=== PATIENT | male | born 1940 | race Caucasian/White ===

== ENCOUNTER → 2018-05-07 07:33 | Outpatient (CLI) | payer OTHER, SELFPAY ==
[2018-05-07 08:26] LABS: Add Manual Diff / Slide Review NO; Basophils Percent Auto 1.1 % (0-2); Eosinophils Percent Auto 4.7 % (2-4); Hematocrit 39.9 % (41-53); Hemoglobin 13.2 g/dL (13.5-17.5); Lymphocytes Percent Auto 38.3 % (25-40); Mean Corpuscular HGB Conc 33.1 % (30-36); Mean Corpuscular Hemoglobin 30.5 PG (26-34); Mean Corpuscular Volume 92.1 fL (80-100); Monocytes Percent Auto 11.8 % (3-14); Neutrophils Absolute Auto 2100 /uL (3000-5900); Neutrophils Percent Auto 44.1 % (50-75); Platelet Count 174 X10^3/uL (150-400); Red Blood Cell Count 4.34 X10^6/uL (4.5-5.9); Red Cell Distribution Width 14.5 % (11.6-14.8); White Blood Cell Count 4.7 X10^3/uL (4.5-11.0)
[2018-05-07 08:37] LABS: HEMOLYSIS < 15 (0-50)
[2018-05-07 08:46] LABS: Hemoglobin A1C% w Est Avg Glu 9.3 % (4.0-6.0)
[2018-05-07 08:47] LABS: Alanine Aminotransferase 30 IU/L (21-72); Albumin 4.4 g/dL (3.5-5.0); Albumin Globulin Ratio 1.6 (1.0-2.8); Alkaline Phosphatase 52 U/L (38-126); Aspartate Aminotransferase 21 IU/L (17-59); BUN Creatinine Ratio 27.5 (6-22); Bilirubin Total 0.6 mg/dL (0.2-1.3); Bilirubin Unconjugated 0.4 mg/dL (0.0-1.1); Blood Urea Nitrogen 22 mg/dL (9-20); Calcium 9.4 mg/dL (8.4-10.2); Carbon Dioxide 30 mmol/L (22-32); Chloride 100 mmol/L (98-107); Estimated Glomerular Filt Rate > 60.0 mL/min (>60); Globulin 2.8 g/dL (1.7-4.1); Glucose 217 mg/dL (80-110); Potassium 4.8 mmol/L (3.4-5.1); Sodium 140 mmol/L (137-145); Total Protein 7.2 g/dL (6.3-8.2)
[2018-05-07 09:43] LABS: Prostate Specific Antigen 0.851 ng/mL (0.10-4.00)
[2018-05-07 09:46] LABS: Creatinine Urine Random 49.9 mg/dL
[2018-05-07 09:51] LABS: Microalbumin Urine Random 1.9 mg/dL (0-1.6)
[2018-05-07 09:55] LABS: Thyroid Stimulating Hormone 2.44 uIU/mL (0.47-4.68)
== END ==
PROVIDERS: Family Provider Internal Medicine; PCP Internal Medicine; Visit Provider Family Medicine
DX: E11.9 Type 2 diabetes mellitus without complications (principal); Z12.5 Encounter for screening for malignant neoplasm of prostate; M54.5 Low back pain; G89.29 Other chronic pain; B35.1 Tinea unguium; Z01.818 Encounter for other preprocedural examination; E03.9 Hypothyroidism, unspecified
CPT/HCPCS: 36415; 80053; 80076; 82043; 82570; 83036; 84153; 84443; 85025

== ENCOUNTER 2018-05-31 15:15 | Outpatient (RCR) | payer OTHER, SELFPAY ==
--- NOTE | 2018-04-26 15:14 | PT.OIE ---
Current Diagnoses Other chronic pain (04/26/18) Low back pain (04/26/18) Provider Visit Care Team Role Provider Type Jaxson Waters MD Family Provider Physician Primary Care Provider Specialty: Internal Medicine Address: [address] [place] [address], [id number] Email: Penny Lau MD Attending Provider Non-Staff Specialty: Family Practice Address: [address] [place] [address], [id number] Email: Physical Therapy Initial Evaluation PT-OP-A Visit Information Start: 04/28/18 16:22 Freq: Status: Active Protocol: Document 04/26/18 15:14 [facility] (Rec: 04/28/18 16:45 [facility] [email or web address]) Out-Patient Physical Therapy Visit Information Visit Information Visit Type Initial Evaluation Visit Start Time 14:30 Visit Stop Time 15:14 Total Visit Minutes 44 Visit Number 1 Number of DIRECTOR PRIVATE MUSIC THERAPY AGENCY Visits 0 Evaluation Information Evaluation Date 04/26/18 PT-OP-B Current Condition Start: 04/28/18 16:22 Freq: Status: Active Protocol: Document 04/26/18 15:14 [facility] (Rec: 04/28/18 16:45 [facility] [email or web address]) Current Condition History of Current Condition Onset Date 1 month ago Current Complaints low back pain History of Current Condition Pt is a 78 y/o male presenting with a c/o low back pain. He has had chronic back pain on/ off for years, normally is able to get relief from chiropractics. He goes to the gym regularly for cardio and does upper body machines. He is hoping to get some exercises for his low back to assist with helping preventing further back injuries in the future. Pt has a couple of stretches he does and an exercise leaning against the wall that his chiropractor gave him. Pt denies radiculopathy, numbness/ tingling, saddle numbness, or changes in bowel/bladder function. No recent radiographs or imaging. Prior Treatments and Tests chiropractor with some relief but pain always comes back Treatment Goals Patient/Caregiver Goals establish exercises to build strength and prevent re-injury . Prior Functional Status Baseline Function- Recreation/Hobbies going to the gym daily for cardio and UE workouts Current Functional Impairments (Reported) Functional Limitations- Recreation/ not back at the gym yet due to Hobbies pain in low back PT-OP-C Subjective Start: 04/28/18 16:22 Freq: Status: Active Protocol: Document 04/26/18 15:14 [facility] (Rec: 04/28/18 16:45 [facility] [email or web address]) OP-PT Pain Assessment Location Bilateral Lower Back Intensity 3 Scale Used Numeric (1 - 10) PT-OP-F Manual Assessment Start: 04/28/18 16:22 Freq: Status: Active Protocol: Document 04/26/18 15:14 [facility] (Rec: 04/28/18 16:45 [facility] [email or web address]) Manual Assessments Soft Tissue Assessment Soft Tissue Mobility Assessment TTP: B mutlifidi L3-5, L piriformis. PT-OP-G Mobility & Gait Start: 04/28/18 16:22 Freq: Status: Active Protocol: Document 04/26/18 15:14 [facility] (Rec: 04/28/18 16:45 [facility] [email or web address]) OP Mobility Evaluation Bed Mobility Rolling indep. Supine to and from Sit indep. OP Gait Assessment Comments Gait Comments mildly antalgic, slight decrease R step length due to increased knee flexion in stance PT-OP-H Neuro Start: 04/28/18 16:22 Freq: Status: Active Protocol: Document 04/26/18 15:14 [facility] (Rec: 04/28/18 16:45 [facility] [email or web address]) Deep Tendon Reflex & Clonus Assessment Deep Tendon Reflex Bilateral Achilles Deep Tendon Reflex 2+ Normal Bilateral Patellar Deep Tendon Reflex 2+ Normal Ankle Clonus Bilateral Clonus Assessment Absent PT-OP-K Range of Motion Start: 04/28/18 16:22 Freq: Status: Active Protocol: Document 04/26/18 15:14 [facility] (Rec: 04/28/18 16:45 [facility] [email or web address]) Lumbar Spine Range of Motion Lumbar Spine Active Degrees Testing Position Standing Flexion 75 Extension 20 PT-OP-L Special Tests Start: 04/28/18 16:22 Freq: Status: Active Protocol: Document 04/26/18 15:14 [facility] (Rec: 04/28/18 16:45 [facility] [email or web address]) Special Tests Lumbar Spine Special Tests Vertical Spine Loading Test Results negative Slump Test Results negative Straight Leg Raise Test Results negative Prone Instability Test Test Results negative PT-OP-M Strength Start: 04/28/18 16:22 Freq: Status: Active Protocol: Document 04/26/18 15:14 [facility] (Rec: 04/28/18 16:45 [facility] [email or web address]) Hip Strength Hip Manual Muscle Testing Right Flexion (L2) 5 Normal External Rotation 5 Normal Internal Rotation 5 Normal Left Flexion (L2) 5 Normal External Rotation 5 Normal Internal Rotation 5 Normal Knee Strength Knee Manual Muscle Testing Right Flexion (S2) 5 Normal Extension (L3) 5 Normal Left Flexion (S2) 5 Normal Extension (L3) 4 Good Ankle/Foot Strength Ankle and Foot Manual Muscle Testing Right Dorsiflexion (L4) 5 Normal Left Dorsiflexion (L4) 5 Normal Toe Strength Toe Manual Muscle Testing Right Great Toe Extension 5 Normal Left Great Toe Extension 5 Normal PT-OP-Q Treatments Start: 04/28/18 16:22 Freq: Status: Active Protocol: Document 04/26/18 15:14 [facility] (Rec: 04/28/18 16:45 [facility] [email or web address]) Therapeutic Activity Therapeutic Activity HEP Name established, reviewed, handout provided for HEP PT-OP-T Assessment and Plan Start: 04/28/18 16:22 Freq: Status: Active Protocol: Document 04/26/18 15:14 [facility] (Rec: 04/28/18 16:45 [facility] [email or web address]) Physical Therapy Assessment Rehab Potential Rehabilitation Potential Excellent Evaluation Complexity Number of Personal Factors/Comorbidities 1-2 Number of Body Systems Impaired 1-2 Clinical Presentation at Evaluation Stable Impairments Impairments Activity Tolerance Gait Pain Strength Goals home exercise program Impairment no home program for core and low back stability Skilled Nursing Goal (LTG) pt will be indep. in a home exercise program to progress his low back and core stability to prevent re-injury prior to d/c. LTG Duration 4 weeks recreational activities Paintings Conservator Goal (LTG) pt will return to the gym for exercise without restriction prior to d/c. LTG Duration 4 weeks pain Impairment pain rated in low back 3/10 Short Term Goal (STG) 1/10 or less in low back pain. STG Duration 2 weeks Skilled Nursing Goal (LTG) 0/10 pain in low back prior to d/c. LTG Duration 4 weeks L quadriceps weakness Paintings Conservator Goal (LTG) 5/5 L quadriceps strength to improve gait and step length on the RLE. LTG Duration 4 weeks Assessment Summary Assessment Pt presents with mechanical low back pain, likely due to impaired core and low back stability, as well as improper technique with some exercises he performs at the gym on his own. Pt would greatly benefit from progression of a home program for his core and low back, as well as skilled progression of his workout routine he will perform at the gym to assist with further advancement of his injury of his low back. At this time, pt was given exercise to perform at home, and if no increase in pain then plan to progress over the next 4 weeks with his program, as well as stretching and manual therapy to decrease pain to return to prior level of function. Physical Therapy Plan Frequency and Duration Frequency of Treatment 1x/Week Duration of Treatment 4 weeks Plan of Care Start Date 04/26/18 Plan of Care End Date 05/24/18 Therapeutic Interventions Therapeutic Interventions Aquatic Therapy Gait Training Home Exercise Program Joint Mobilizations Manual Therapy Neuromuscular Re-education Patient/Caregiver Education Self-Care/Home Management Soft Tissue Mobilization Taping Therapeutic Activities Therapeutic Exercises Modalities Cold Pack/Ice Massage Electric Stimulation Hot Packs Ultrasound Next Visit Focus/Plan Next Note Type Treatment Note Next Visit Plan advance core stability (prone activities), review proper body mechanics with lifting and squats, review gym equipment and perform with proper technique; manual therapy for pain; piriformis stretching.
--- NOTE | 2018-05-31 15:53 | PT.OTN ---
Current Diagnoses Other chronic pain (05/31/18) Low back pain (05/31/18) Physical Therapy Treatment Note PT-OP-A Visit Information Start: 04/28/18 16:22 Freq: Status: Active Protocol: Document 05/31/18 15:53 [facility] (Rec: 05/31/18 18:10 [facility] [email or web address]) Out-Patient Physical Therapy Visit Information Visit Information Visit Type Treatment Note Visit Start Time 15:15 Visit Stop Time 15:52 Total Visit Minutes 38 Visit Number 2 Number of FLIGHT ATTENDANT Visits 0 Evaluation Information Evaluation Date 04/26/18 PT-OP-B Current Condition Start: 04/28/18 16:22 Freq: Status: Active Protocol: Document 04/26/18 15:14 [facility] (Rec: 04/28/18 16:45 [facility] [email or web address]) Current Condition History of Current Condition Onset Date 1 month ago Current Complaints low back pain History of Current Condition Pt is a 78 y/o male presenting with a c/o low back pain. He has had chronic back pain on/ off for years, normally is able to get relief from chiropractics. He goes to the gym regularly for cardio and does upper body machines. He is hoping to get some exercises for his low back to assist with helping preventing further back injuries in the future. Pt has a couple of stretches he does and an exercise leaning against the wall that his chiropractor gave him. Pt denies radiculopathy, numbness/ tingling, saddle numbness, or changes in bowel/bladder function. No recent radiographs or imaging. Prior Treatments and Tests chiropractor with some relief but pain always comes back Treatment Goals Patient/Caregiver Goals establish exercises to build strength and prevent re-injury . Prior Functional Status Baseline Function- Recreation/Hobbies going to the gym daily for cardio and UE workouts Current Functional Impairments (Reported) Functional Limitations- Recreation/ not back at the gym yet due to Hobbies pain in low back PT-OP-C Subjective Start: 04/28/18 16:22 Freq: Status: Active Protocol: Document 05/31/18 15:53 [facility] (Rec: 05/31/18 18:10 [facility] [email or web address]) OP-PT Subjective Patient Comments Patient Comments Pt reports that he thinks his back pain was worse after doing the seated abdominal crunch. He is improving, but still with some days of soreness in the back. OP-PT Pain Assessment Location Bilateral Lower Back Intensity 0 Scale Used Numeric (1 - 10) PT-OP-F Manual Assessment Start: 04/28/18 16:22 Freq: Status: Active Protocol: Document 04/26/18 15:14 [facility] (Rec: 04/28/18 16:45 [facility] [email or web address]) Manual Assessments Soft Tissue Assessment Soft Tissue Mobility Assessment TTP: B mutlifidi L3-5, L piriformis. PT-OP-G Mobility & Gait Start: 04/28/18 16:22 Freq: Status: Active Protocol: Document 04/26/18 15:14 [facility] (Rec: 04/28/18 16:45 [facility] [email or web address]) OP Mobility Evaluation Bed Mobility Rolling indep. Supine to and from Sit indep. OP Gait Assessment Comments Gait Comments mildly antalgic, slight decrease R step length due to increased knee flexion in stance PT-OP-H Neuro Start: 04/28/18 16:22 Freq: Status: Active Protocol: Document 04/26/18 15:14 [facility] (Rec: 04/28/18 16:45 [facility] [email or web address]) Deep Tendon Reflex & Clonus Assessment Deep Tendon Reflex Bilateral Achilles Deep Tendon Reflex 2+ Normal Bilateral Patellar Deep Tendon Reflex 2+ Normal Ankle Clonus Bilateral Clonus Assessment Absent PT-OP-K Range of Motion Start: 04/28/18 16:22 Freq: Status: Active Protocol: Document 04/26/18 15:14 [facility] (Rec: 04/28/18 16:45 [facility] [email or web address]) Lumbar Spine Range of Motion Lumbar Spine Active Degrees Testing Position Standing Flexion 75 Extension 20 PT-OP-L Special Tests Start: 04/28/18 16:22 Freq: Status: Active Protocol: Document 04/26/18 15:14 [facility] (Rec: 04/28/18 16:45 [facility] [email or web address]) Special Tests Lumbar Spine Special Tests Vertical Spine Loading Test Results negative Slump Test Results negative Straight Leg Raise Test Results negative Prone Instability Test Test Results negative PT-OP-M Strength Start: 04/28/18 16:22 Freq: Status: Active Protocol: Document 04/26/18 15:14 [facility] (Rec: 04/28/18 16:45 [facility] [email or web address]) Hip Strength Hip Manual Muscle Testing Right Flexion (L2) 5 Normal External Rotation 5 Normal Internal Rotation 5 Normal Left Flexion (L2) 5 Normal External Rotation 5 Normal Internal Rotation 5 Normal Knee Strength Knee Manual Muscle Testing Right Flexion (S2) 5 Normal Extension (L3) 5 Normal Left Flexion (S2) 5 Normal Extension (L3) 4 Good Ankle/Foot Strength Ankle and Foot Manual Muscle Testing Right Dorsiflexion (L4) 5 Normal Left Dorsiflexion (L4) 5 Normal Toe Strength Toe Manual Muscle Testing Right Great Toe Extension 5 Normal Left Great Toe Extension 5 Normal PT-OP-Q Treatments Start: 04/28/18 16:22 Freq: Status: Active Protocol: Document 05/31/18 15:53 [facility] (Rec: 05/31/18 18:10 [facility] [email or web address]) Gym Equipment Cable Column (Body Solid) Leg Extension Resistance 20 lbs B, 10 lbs U Reps/Time x15 each Leg Curl Resistance 20 lbs Reps/Time x15 Therapeutic Ball PPT Exercise Details posterior pelvic tilt Ball Size/Color 65 cm ball Body Position seated Reps/Duration x10 Therapeutic Exercises Supine Exercises transverse abdominal activation Side bilateral Reps/Minutes 10 x 5 sec hold PPT Supine Exercise Name posterior pelvic tilt Side bilateral Reps/Minutes x10 SLR- flexion Supine Exercise Name SLR flexion with ER Side left Reps/Minutes x10 Standing Exercises step downs with core activation Standing Exercise Name step downs on 6 stairs with core activation Side bilateral Comments UE assistance Other Exercises alternating LE lift (quadruped) Side bilateral Reps/Minutes 10 PT-OP-T Assessment and Plan Start: 04/28/18 16:22 Freq: Status: Active Protocol: Document 05/31/18 15:53 [facility] (Rec: 05/31/18 18:10 [facility] [email or web address]) Physical Therapy Assessment Goals home exercise program Impairment no home program for core and low back stability Skilled Nursing Goal (LTG) pt will be indep. in a home exercise program to progress his low back and core stability to prevent re-injury prior to d/c. LTG Duration 4 weeks- good progress, requires further progression 05/31/18 recreational activities Skilled Nursing Goal (LTG) pt will return to the gym for exercise without restriction prior to d/c. LTG Duration 4 weeks- good progress pain Impairment pain rated in low back 3/10 Short Term Goal (STG) 1/10 or less in low back pain. STG Duration 2 weeks- achieved 05/31/18 Skilled Nursing Goal (LTG) 0/10 pain in low back prior to d/c. LTG Duration 4 weeks- achieved 05/31/18 L quadriceps weakness Skilled Nursing Goal (LTG) 5/5 L quadriceps strength to improve gait and step length on the RLE. LTG Duration 4 weeks Progress Towards Goals Progress Comments pt with 0/10 reported pain in the low back. He requires reminders and cuing for safe HEP progression, and still limited with gym activities. Assessment Summary Assessment Pt with no pain reported today in the low back. 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 Pt will require further skilled physical therapy to progress his HEP and continue to advance his safety with activities including proper body mechanics and posture. Physical Therapy Plan Frequency and Duration Frequency of Treatment 1x/Week Duration of Treatment 4 weeks Plan of Care Start Date 05/31/18 Plan of Care End Date 06/28/18 Therapeutic Interventions Therapeutic Interventions Aquatic Therapy Gait Training Home Exercise Program Joint Mobilizations Manual Therapy Neuromuscular Re-education Patient/Caregiver Education Self-Care/Home Management Soft Tissue Mobilization Taping Therapeutic Activities Therapeutic Exercises Modalities Cold Pack/Ice Massage Electric Stimulation Hot Packs Ultrasound Next Visit Focus/Plan Next Note Type Treatment Note Next Visit Plan progress core stability for HEP, L quadriceps MMT and strengthening.
--- NOTE | 2018-05-31 15:53 | PT.OPPOC ---
Current Diagnoses Other chronic pain (05/31/18) Low back pain (05/31/18) Provider Visit Care Team Role Provider Type Jaxson Waters MD Family Provider Physician Primary Care Provider Specialty: Internal Medicine Address: [address] [place] [address], [phone] Email: Penny Lau MD Attending Provider Non-Staff Specialty: Family Practice Address: [address] [place] [address], [phone] Email: Plan Of Care PT-OP-T Assessment and Plan Start: 04/28/18 16:22 Freq: Status: Active Protocol: Document 05/31/18 15:53 [facility] (Rec: 05/31/18 18:10 [facility] [email or web address]) Physical Therapy Assessment Goals home exercise program Impairment no home program for core and low back stability Skilled Nursing Goal (LTG) pt will be indep. in a home exercise program to progress his low back and core stability to prevent re-injury prior to d/c. LTG Duration 4 weeks- good progress, requires further progression 05/31/18 recreational activities Key Bed Installer Goal (LTG) pt will return to the gym for exercise without restriction prior to d/c. LTG Duration 4 weeks- good progress pain Impairment pain rated in low back 3/10 Short Term Goal (STG) 1/10 or less in low back pain. STG Duration 2 weeks- achieved 05/31/18 Key Bed Installer Goal (LTG) 0/10 pain in low back prior to d/c. LTG Duration 4 weeks- achieved 05/31/18 L quadriceps weakness Skilled Nursing Goal (LTG) 5/5 L quadriceps strength to improve gait and step length on the RLE. LTG Duration 4 weeks Progress Towards Goals Progress Comments pt with 0/10 reported pain in the low back. He requires reminders and cuing for safe HEP progression, and still limited with gym activities. Assessment Summary Assessment Pt with no pain reported today in the low back. 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 Pt will require further skilled physical therapy to progress his HEP and continue to advance his safety with activities including proper body mechanics and posture. Physical Therapy Plan Frequency and Duration Frequency of Treatment 1x/Week Duration of Treatment 4 weeks Plan of Care Start Date 05/31/18 Plan of Care End Date 06/28/18 Therapeutic Interventions Therapeutic Interventions Aquatic Therapy Gait Training Home Exercise Program Joint Mobilizations Manual Therapy Neuromuscular Re-education Patient/Caregiver Education Self-Care/Home Management Soft Tissue Mobilization Taping Therapeutic Activities Therapeutic Exercises Modalities Cold Pack/Ice Massage Electric Stimulation Hot Packs Ultrasound Next Visit Focus/Plan Next Note Type Treatment Note Next Visit Plan progress core stability for HEP, L quadriceps MMT and strengthening. Plan of Care Dates Plan of Care Start Date 05/31/18 Plan of Care End Date 06/28/18 Please Sign and Return: I have reviewed this Plan of Care and certify that the skilled therapy services above are required to meet the patient?s needs. Physician Signature Date Printed Name and Credentials Clinical Instructor Signature Printed Name and Credentials
--- NOTE | 2018-07-20 12:28 | PT.OTN ---
Current Diagnoses Other chronic pain (05/31/18) Low back pain (05/31/18) Physical Therapy Treatment Note PT-OP-A Visit Information Start: 04/28/18 16:22 Freq: Status: Active Protocol: Document 07/20/18 11:15 DCW (Rec: 07/20/18 12:27 DC [id number]) Out-Patient Physical Therapy Visit Information Visit Information Visit Type Treatment Note Visit Start Time 11:15 Visit Stop Time 11:55 Total Visit Minutes 40 Visit Number 3 Number of AMALGAMATOR Visits 0 Evaluation Information Evaluation Date 04/26/18 PT-OP-B Current Condition Start: 04/28/18 16:22 Freq: Status: Active Protocol: Document 04/26/18 15:14 RCC (Rec: 04/28/18 16:45 RCC [email or web address]) Current Condition History of Current Condition Onset Date 1 month ago Current Complaints low back pain History of Current Condition Pt is a 78 y/o male presenting with a c/o low back pain. He has had chronic back pain on/ off for years, normally is able to get relief from chiropractics. He goes to the gym regularly for cardio and does upper body machines. He is hoping to get some exercises for his low back to assist with helping preventing further back injuries in the future. Pt has a couple of stretches he does and an exercise leaning against the wall that his chiropractor gave him. Pt denies radiculopathy, numbness/ tingling, saddle numbness, or changes in bowel/bladder function. No recent radiographs or imaging. Prior Treatments and Tests chiropractor with some relief but pain always comes back Treatment Goals Patient/Caregiver Goals establish exercises to build strength and prevent re-injury . Prior Functional Status Baseline Function- Recreation/Hobbies going to the gym daily for cardio and UE workouts Current Functional Impairments (Reported) Functional Limitations- Recreation/ not back at the gym yet due to Hobbies pain in low back PT-OP-C Subjective Start: 04/28/18 16:22 Freq: Status: Active Protocol: Document 07/20/18 11:15 DCW (Rec: 07/20/18 12:27 DCW [id number]) OP-PT Subjective Patient Comments Patient Comments Pt reports his back has been much worse following a workout at the gym last week. Pt's pain is centralized along the top of his right posterior hip , and he has been having difficulty getting into and out of his car. PT-OP-F Manual Assessment Start: 04/28/18 16:22 Freq: Status: Active Protocol: Document 07/20/18 11:15 DCW (Rec: 07/20/18 11:55 DCW [id number]) Manual Assessments Soft Tissue Assessment Soft Tissue Mobility Assessment Tenderness to palpation 2/4: Pain with wincing - Right QL, Moderate tone along R QL PT-OP-G Mobility & Gait Start: 04/28/18 16:22 Freq: Status: Active Protocol: Document 04/26/18 15:14 RCC (Rec: 04/28/18 16:45 RCC [email or web address]) OP Mobility Evaluation Bed Mobility Rolling indep. Supine to and from Sit indep. OP Gait Assessment Comments Gait Comments mildly antalgic, slight decrease R step length due to increased knee flexion in stance PT-OP-H Neuro Start: 04/28/18 16:22 Freq: Status: Active Protocol: Document 04/26/18 15:14 RCC (Rec: 04/28/18 16:45 RCC [email or web address]) Deep Tendon Reflex & Clonus Assessment Deep Tendon Reflex Bilateral Achilles Deep Tendon Reflex 2+ Normal Bilateral Patellar Deep Tendon Reflex 2+ Normal Ankle Clonus Bilateral Clonus Assessment Absent PT-OP-K Range of Motion Start: 04/28/18 16:22 Freq: Status: Active Protocol: Document 07/20/18 11:15 DCW (Rec: 07/20/18 11:55 DCW [id number]) Lumbar Spine Range of Motion Lumbar Spine Active Degrees Flexion 5 Extension 15 PT-OP-L Special Tests Start: 04/28/18 16:22 Freq: Status: Active Protocol: Document 07/20/18 11:15 DCW (Rec: 07/20/18 11:55 DCW [id number]) Special Tests Lumbar Spine Special Tests Vertical Spine Loading Test Results negative Straight Leg Raise Test Results negative Prone Instability Test Test Results negative PT-OP-M Strength Start: 04/28/18 16:22 Freq: Status: Active Protocol: Document 07/20/18 11:15 DCW (Rec: 07/20/18 11:55 DCW [id number]) Hip Strength Hip Manual Muscle Testing Right Flexion (L2) 5 Normal External Rotation 5 Normal Internal Rotation 5 Normal Left Flexion (L2) 5 Normal External Rotation 5 Normal Internal Rotation 5 Normal Knee Strength Knee Manual Muscle Testing Right Flexion (S2) 5 Normal Extension (L3) 5 Normal Left Flexion (S2) 5 Normal Extension (L3) 4 Good Ankle/Foot Strength Ankle and Foot Manual Muscle Testing Right Dorsiflexion (L4) 5 Normal Left Dorsiflexion (L4) 5 Normal PT-OP-Q Treatments Start: 04/28/18 16:22 Freq: Status: Active Protocol: Document 07/20/18 11:15 DCW (Rec: 07/20/18 12:27 [facility] [id number]) Therapeutic Exercises Supine Exercises QL stretch Supine Exercise Name Supine Lumbar rotation Sidelying Exercises QL Stretch Sidelying Exercise Name Double lower leg drop off plinth Sitting Exercises Low back Stretch Sitting Exercise Name Seated lumbar flexion QL Stretch Sitting Exercise Name Lateral lumbar trunk flexion Manual Therapy Treatment Soft Tissue Mobilization Right QL Body Location Right QL Mobilization Type Strumming Sustained Pressure Intensity/Depth Moderate Body Position Prone PT-OP-T Assessment and Plan Start: 04/28/18 16:22 Freq: Status: Active Protocol: Document 07/20/18 11:15 DCW (Rec: 07/20/18 12:27 [facility] [id number]) Physical Therapy Assessment Goals home exercise program Impairment no home program for core and low back stability Hand Blocker Goal (LTG) pt will be indep. in a home exercise program to progress his low back and core stability to prevent re-injury prior to d/c. LTG Duration 4 weeks- good progress, requires further progression 05/31/18 recreational activities Mcc Goal (LTG) pt will return to the gym for exercise without restriction prior to d/c. LTG Duration 4 weeks- good progress pain Impairment pain rated in low back 3/10 Short Term Goal (STG) 1/10 or less in low back pain. STG Duration 2 weeks- achieved 05/31/18 Hand Blocker Goal (LTG) 0/10 pain in low back prior to d/c. LTG Duration 4 weeks- achieved 05/31/18 L quadriceps weakness Hand Blocker Goal (LTG) 5/5 L quadriceps strength to improve gait and step length on the RLE. LTG Duration 4 weeks Assessment Summary Assessment Pt arrived in the clinic today requesting an appointment due to worsening back pain. He was last seen 05/31/18, and at that time was not having any symptoms, and instructed to return for a follow-up if his low back pain returned. Pt appears to have aggravated his right quadratus lumborum on gym equipment, and is suffering from a spasm throughout the muscle, resulting in pain and restricted ROM. Pt tolerated STM and stretching exercises well, and agreed to supplement his ongoing HEP with new stretching exercises. Pt will return to skilled PT as needed . Physical Therapy Plan Frequency and Duration Frequency of Treatment 1x/Week Duration of Treatment 2 months Plan of Care Start Date 07/20/18 Plan of Care End Date 09/17/18 Therapeutic Interventions Therapeutic Interventions Aquatic Therapy Gait Training Home Exercise Program Joint Mobilizations Manual Therapy Neuromuscular Re-education Patient/Caregiver Education Self-Care/Home Management Soft Tissue Mobilization Taping Therapeutic Activities Therapeutic Exercises Modalities Cold Pack/Ice Massage Electric Stimulation Hot Packs Ultrasound Next Visit Focus/Plan Next Note Type Treatment Note Next Visit Plan progress core stability for HEP, L quadriceps MMT and strengthening.
--- NOTE | 2018-07-20 12:29 | PT.OPPOC ---
Current Diagnoses Other chronic pain (05/31/18) Low back pain (05/31/18) Provider Visit Care Team Role Provider Type Jaxson Waters MD Family Provider Physician Primary Care Provider Specialty: Internal Medicine Address: [address] [place] [address], [id number] Email: Penny Lau MD Attending Provider Non-Staff Specialty: Family Practice Address: [address] [place] [address], [id number] Email: Plan Of Care PT-OP-T Assessment and Plan Start: 04/28/18 16:22 Freq: Status: Active Protocol: Document 07/20/18 11:15 DCW (Rec: 07/20/18 12:27 DCW [id number]) Physical Therapy Assessment Goals home exercise program Impairment no home program for core and low back stability Intermediate Goal (LTG) pt will be indep. in a home exercise program to progress his low back and core stability to prevent re-injury prior to d/c. LTG Duration 4 weeks- good progress, requires further progression 05/31/18 recreational activities Tent Worker Goal (LTG) pt will return to the gym for exercise without restriction prior to d/c. LTG Duration 4 weeks- good progress pain Impairment pain rated in low back 3/10 Short Term Goal (STG) 1/10 or less in low back pain. STG Duration 2 weeks- achieved 05/31/18 Intermediate Goal (LTG) 0/10 pain in low back prior to d/c. LTG Duration 4 weeks- achieved 05/31/18 L quadriceps weakness Tent Worker Goal (LTG) 5/5 L quadriceps strength to improve gait and step length on the RLE. LTG Duration 4 weeks Assessment Summary Assessment Pt arrived in the clinic today requesting an appointment due to worsening back pain. He was last seen 05/31/18, and at that time was not having any symptoms, and instructed to return for a follow-up if his low back pain returned. Pt appears to have aggravated his right quadratus lumborum on gym equipment, and is suffering from a spasm throughout the muscle, resulting in pain and restricted ROM. Pt tolerated STM and stretching exercises well, and agreed to supplement his ongoing HEP with new stretching exercises. Pt will return to skilled PT as needed . Physical Therapy Plan Frequency and Duration Frequency of Treatment 1x/Week Duration of Treatment 2 months Plan of Care Start Date 07/20/18 Plan of Care End Date 09/17/18 Therapeutic Interventions Therapeutic Interventions Aquatic Therapy Gait Training Home Exercise Program Joint Mobilizations Manual Therapy Neuromuscular Re-education Patient/Caregiver Education Self-Care/Home Management Soft Tissue Mobilization Taping Therapeutic Activities Therapeutic Exercises Modalities Cold Pack/Ice Massage Electric Stimulation Hot Packs Ultrasound Next Visit Focus/Plan Next Note Type Treatment Note Next Visit Plan progress core stability for HEP, L quadriceps MMT and strengthening. Plan of Care Dates Plan of Care Start Date 07/20/18 Plan of Care End Date 09/17/18 Please Sign and Return: I have reviewed this Plan of Care and certify that the skilled therapy services above are required to meet the patient?s needs. Physician Signature Date Printed Name and Credentials Clinical Instructor Signature Printed Name and Credentials
--- NOTE | 2018-09-19 14:42 | PT.OPDS ---
Current Diagnoses Other chronic pain (05/31/18) Low back pain (05/31/18) Provider Visit Care Team Role Provider Type Jaxson Waters MD Family Provider Physician Primary Care Provider Specialty: Internal Medicine Address: [address] [place] [address], [phone] Email: Penny Lau MD Attending Provider Non-Staff Specialty: Family Practice Address: [address] [place] [address], [phone] Email: Visit Number Visit Number 3 Discharge Summary PT-OP-B Current Condition Start: 04/28/18 16:22 Freq: Status: Active Protocol: Document 04/26/18 15:14 RCC (Rec: 04/28/18 16:45 RCC [email or web address]) Current Condition History of Current Condition Onset Date 1 month ago Current Complaints low back pain History of Current Condition Pt is a 78 y/o male presenting with a c/o low back pain. He has had chronic back pain on/ off for years, normally is able to get relief from chiropractics. He goes to the gym regularly for cardio and does upper body machines. He is hoping to get some exercises for his low back to assist with helping preventing further back injuries in the future. Pt has a couple of stretches he does and an exercise leaning against the wall that his chiropractor gave him. Pt denies radiculopathy, numbness/ tingling, saddle numbness, or changes in bowel/bladder function. No recent radiographs or imaging. Prior Treatments and Tests chiropractor with some relief but pain always comes back Treatment Goals Patient/Caregiver Goals establish exercises to build strength and prevent re-injury . Prior Functional Status Baseline Function- Recreation/Hobbies going to the gym daily for cardio and UE workouts Current Functional Impairments (Reported) Functional Limitations- Recreation/ not back at the gym yet due to Hobbies pain in low back PT-OP-C Subjective Start: 04/28/18 16:22 Freq: Status: Active Protocol: Document 09/19/18 14:34 RCC (Rec: 09/19/18 14:41 RCC [email or web address]) OP-PT Subjective Patient Comments Patient Comments Called initially and left message for pt about calling back with an update on his progress. Pt called back later this date, and states that he has been doing well without any major issues with his low back. Pt is back to the gym without issues, and not performing any exercises that aggravate his pain or symptoms . Pt is going on a boating trip for 2 months soon, will not be able to attend physical therapy. PT-OP-F Manual Assessment Start: 04/28/18 16:22 Freq: Status: Active Protocol: Document 07/20/18 11:15 DCW (Rec: 07/20/18 11:55 DCW [id number]) Manual Assessments Soft Tissue Assessment Soft Tissue Mobility Assessment Tenderness to palpation 2/4: Pain with wincing - Right QL, Moderate tone along R QL PT-OP-G Mobility & Gait Start: 04/28/18 16:22 Freq: Status: Active Protocol: Document 04/26/18 15:14 RCC (Rec: 04/28/18 16:45 RCC [email or web address]) OP Mobility Evaluation Bed Mobility Rolling indep. Supine to and from Sit indep. OP Gait Assessment Comments Gait Comments mildly antalgic, slight decrease R step length due to increased knee flexion in stance PT-OP-H Neuro Start: 04/28/18 16:22 Freq: Status: Active Protocol: Document 04/26/18 15:14 RCC (Rec: 04/28/18 16:45 RCC [id number]) Deep Tendon Reflex & Clonus Assessment Deep Tendon Reflex Bilateral Achilles Deep Tendon Reflex 2+ Normal Bilateral Patellar Deep Tendon Reflex 2+ Normal Ankle Clonus Bilateral Clonus Assessment Absent PT-OP-K Range of Motion Start: 04/28/18 16:22 Freq: Status: Active Protocol: Document 07/20/18 11:15 DCW (Rec: 07/20/18 11:55 DCW [id number]) Lumbar Spine Range of Motion Lumbar Spine Active Degrees Flexion 5 Extension 15 PT-OP-L Special Tests Start: 04/28/18 16:22 Freq: Status: Active Protocol: Document 07/20/18 11:15 DCW (Rec: 07/20/18 11:55 DCW [id number]) Special Tests Lumbar Spine Special Tests Vertical Spine Loading Test Results negative Straight Leg Raise Test Results negative Prone Instability Test Test Results negative PT-OP-M Strength Start: 11/10/18 16:22 Freq: Status: Active Protocol: Document 07/20/18 11:15 DCW (Rec: 07/20/18 11:55 DCW [id number]) Hip Strength Hip Manual Muscle Testing Right Flexion (L2) 5 Normal External Rotation 5 Normal Internal Rotation 5 Normal Left Flexion (L2) 5 Normal External Rotation 5 Normal Internal Rotation 5 Normal Knee Strength Knee Manual Muscle Testing Right Flexion (S2) 5 Normal Extension (L3) 5 Normal Left Flexion (S2) 5 Normal Extension (L3) 4 Good Ankle/Foot Strength Ankle and Foot Manual Muscle Testing Right Dorsiflexion (L4) 5 Normal Left Dorsiflexion (L4) 5 Normal PT-OP-T Assessment and Plan Start: 04/28/18 16:22 Freq: Status: Active Protocol: Document 09/19/18 14:34 RCC (Rec: 09/19/18 14:41 RCC [email or web address]) Physical Therapy Assessment Assessment Summary Assessment Pt overall attended 3 physical therapy sessions, including the initial evaluation. Pt reports to be back to baseline with his activity level, without c/o low back pain. Pt had a flare up of pain in July but was seen and treated at this clinic and recommended to avoid a particular core machine he was using. No issues reported since then. At this time, pt will be d/c from physical therapy, as the most recent plan of care has now and reported no issues at this time. Physical Therapy Plan Discharge Physical Therapy Discharge Reasons No Longer Attending PT
== END 2018-10-29 17:11 ==
LOC: PHYS 15:15
PROVIDERS: Family Provider Internal Medicine; PCP Internal Medicine; Visit Provider Family Medicine
DX: M54.5 Low back pain (principal); G89.29 Other chronic pain
CPT/HCPCS: 97110; 97140; 97161

== ENCOUNTER → 2019-05-14 07:04 | Outpatient (CLI) | payer OTHER, SELFPAY ==
[2019-05-14 07:47] LABS: Add Manual Diff / Slide Review NO; Basophils Absolute Auto 100 /uL (0-100); Basophils Percent Auto 1.4 % (0-2); Eosinophils Absolute Auto 200 /uL (0-450); Eosinophils Percent Auto 3.5 % (2-4); Hematocrit 39.7 % (41-53); Hemoglobin 13.3 g/dL (13.5-17.5); Lymphocytes Absolute Auto 1700 /uL (1100-4500); Lymphocytes Percent Auto 36.4 % (25-40); Mean Corpuscular HGB Conc 33.5 % (30-36); Mean Corpuscular Hemoglobin 30.6 PG (26-34); Mean Corpuscular Volume 91.2 fL (80-100); Monocytes Absolute Auto 500 /uL (0-900); Monocytes Percent Auto 10.6 % (3-14); Neutrophils Absolute Auto 2300 /uL (1500-7000); Neutrophils Percent Auto 48.1 % (50-75); Platelet Count 189 X10^3/uL (150-400); Red Blood Cell Count 4.36 X10^6/uL (4.5-5.9); Red Cell Distribution Width 14.8 % (11.6-14.8); White Blood Cell Count 4.8 X10^3/uL (4.5-11.0)
[2019-05-14 07:57] LABS: Hemoglobin A1C% w Est Avg Glu 9.5 % (4.0-6.0)
[2019-05-14 08:14] LABS: Alanine Aminotransferase 20 IU/L (<50); Albumin 4.7 g/dL (3.5-5.0); Albumin Globulin Ratio 1.7 (1.0-2.8); Alkaline Phosphatase 50 U/L (38-126); Aspartate Aminotransferase 23 IU/L (17-59); BUN Creatinine Ratio 26.7 (6-22); Bilirubin Total 0.6 mg/dL (0.2-1.3); Blood Urea Nitrogen 24 mg/dL (9-20); Calcium 9.7 mg/dL (8.4-10.2); Carbon Dioxide 32 mmol/L (22-32); Chloride 100 mmol/L (98-107); Cholesterol 157 mg/dL (140-199); Estimated Glomerular Filt Rate > 60.0 mL/min (>60); Globulin 2.8 g/dL (1.7-4.1); Glucose 194 mg/dL (80-110); HDL Cholesterol 44 mg/dL (40-60); HEMOLYSIS < 15 (0-50); LDL Cholesterol Calculated 89 mg/dL (<100); Potassium 4.7 mmol/L (3.4-5.1); Sodium 139 mmol/L (137-145); Total Protein 7.5 g/dL (6.3-8.2); Triglycerides 118 mg/dL (35-150); VLDL Cholesterol Calculated 24 mg/dL (2-30)
[2019-05-14 08:36] LABS: Prostate Specific Antigen Scrn 0.759 ng/mL (0.1-4.0)
[2019-05-14 08:38] LABS: Thyroid Stimulating Hormone 7.04 uIU/mL (0.47-4.68)
== END ==
PROVIDERS: PCP Internal Medicine; Visit Provider Family Medicine
DX: Z51.81 Encounter for therapeutic drug level monitoring (principal); R73.09 Other abnormal glucose; E03.9 Hypothyroidism, unspecified; Z12.5 Encounter for screening for malignant neoplasm of prostate; E78.5 Hyperlipidemia, unspecified
CPT/HCPCS: 36415; 80053; 80061; 83036; 84443; 85025; G0103

== ENCOUNTER → 2019-07-10 09:47 | Outpatient (CLI) | payer OTHER, SELFPAY ==
[2019-07-10 11:41] LABS: Thyroid Stimulating Hormone 1.44 uIU/mL (0.47-4.68)
== END ==
PROVIDERS: PCP Family Medicine; Visit Provider Family Medicine
DX: E03.9 Hypothyroidism, unspecified (principal)
CPT/HCPCS: 36415; 84443

== ENCOUNTER → 2019-09-09 07:22 | Outpatient (CLI) | payer OTHER, SELFPAY ==
[2019-09-09 09:05] LABS: Hemoglobin A1C% w Est Avg Glu 9.5 % (4.0-6.0)
[2019-09-09 09:34] LABS: Alanine Aminotransferase 23 IU/L (<50); Albumin 4.5 g/dL (3.5-5.0); Albumin Globulin Ratio 1.4 (1.0-2.8); Alkaline Phosphatase 54 U/L (38-126); Aspartate Aminotransferase 24 IU/L (17-59); BUN Creatinine Ratio 30.8 (6-22); Bilirubin Total 0.7 mg/dL (0.2-1.3); Blood Urea Nitrogen 24 mg/dL (9-20); Calcium 9.8 mg/dL (8.4-10.2); Carbon Dioxide 32 mmol/L (22-32); Chloride 97 mmol/L (98-107); Estimated Glomerular Filt Rate > 60.0 mL/min (>60); Globulin 3.2 g/dL (1.7-4.1); Glucose 255 mg/dL (80-110); HEMOLYSIS < 15 (0-50); Potassium 4.6 mmol/L (3.4-5.1); Sodium 135 mmol/L (137-145); Total Protein 7.7 g/dL (6.3-8.2)
== END ==
PROVIDERS: PCP Family Medicine; Referring Provider Family Medicine; Visit Provider Family Medicine
DX: E11.9 Type 2 diabetes mellitus without complications (principal)
CPT/HCPCS: 36415; 80053; 83036

== ENCOUNTER → 2019-11-19 10:56 | Outpatient (CLI) | payer OTHER, SELFPAY ==
[2019-11-20 15:20] LABS: COVID19 Sendout NOT DETECTED (Not Detect)
== END ==
PROVIDERS: PCP Family Medicine; Visit Provider Registered Nurse
DX: Z01.812 Encounter for preprocedural laboratory examination (principal)
CPT/HCPCS: 87635

== ENCOUNTER → 2019-11-22 07:50 | Outpatient (CLI) | payer OTHER, SELFPAY ==
--- NOTE | 2019-11-29 16:06 | PM.PFT.1 ---
Pulmonary Function Test Referral & Results Date Patient Seen: 11/22/19 Requesting provider: Penny Lau Results: The spirometry demonstrates an FVC of 3.07 L which is 74% of predicted. The FEV1 was measured at 2.45 L which is 83% of predicted. The FEV1/FVC ratio was 80 which is 110% of predicted. Following the administration of bronchodilator there was no appreciable change. Lung volumes show an SVC of 3.02 L which is 67% of predicted. The diffusing capacity was measured at 23.76 which is 73% of predicted. No hemoglobin value was provided, so no correction for potential anemia could be made, if appropriate. The maximum voluntary ventilation was slightly reduced Interpretation: This study demonstrates very mild obstructive lung disease based on minimal reduction FEV1 as above. No evidence of benefit following bronchodilator There is more prominent restrictive lung disease present based on reduction SVC There is also mild reduction in diffusing capacity suggesting some element of disease at the capillary alveolar level Clinical correlation suggested
== END ==
PROVIDERS: PCP Family Medicine; Referring Provider Family Medicine; Visit Provider Family Medicine
DX: R91.8 Other nonspecific abnormal finding of lung field (principal); R05 Cough; R93.89 Abnormal findings on diagnostic imaging of other specified body structures
CPT/HCPCS: 94060; 94726; 94729

== ENCOUNTER → 2019-11-29 07:14 | Outpatient (CLI) | payer OTHER, SELFPAY ==
[2019-11-29 08:11] LABS: Add Manual Diff / Slide Review NO; Basophils Absolute Auto 100 /uL (0-100); Basophils Percent Auto 1.3 % (0-2); Eosinophils Absolute Auto 200 /uL (0-450); Eosinophils Percent Auto 5.4 % (2-4); Hematocrit 39.6 % (41-53); Hemoglobin 13.2 g/dL (13.5-17.5); Lymphocytes Absolute Auto 1400 /uL (1100-4500); Lymphocytes Percent Auto 36.3 % (25-40); Mean Corpuscular HGB Conc 33.2 % (30-36); Mean Corpuscular Hemoglobin 30.5 PG (26-34); Mean Corpuscular Volume 91.7 fL (80-100); Monocytes Absolute Auto 500 /uL (0-900); Monocytes Percent Auto 13.3 % (3-14); Neutrophils Absolute Auto 1700 /uL (1500-7000); Neutrophils Percent Auto 43.7 % (50-75); Platelet Count 196 X10^3/uL (150-400); Red Blood Cell Count 4.32 X10^6/uL (4.5-5.9); Red Cell Distribution Width 15.1 % (11.6-14.8); White Blood Cell Count 3.9 X10^3/uL (4.5-11.0)
[2019-11-29 08:23] LABS: Alanine Aminotransferase 19 IU/L (<50); Albumin 4.3 g/dL (3.5-5.0); Albumin Globulin Ratio 1.6 (1.0-2.8); Alkaline Phosphatase 51 U/L (38-126); Aspartate Aminotransferase 23 IU/L (17-59); BUN Creatinine Ratio 35.6 (6-22); Bilirubin Total 0.5 mg/dL (0.2-1.3); Blood Urea Nitrogen 26 mg/dL (9-20); Calcium 9.3 mg/dL (8.4-10.2); Carbon Dioxide 29 mmol/L (22-32); Chloride 101 mmol/L (98-107); Estimated Glomerular Filt Rate > 60.0 mL/min (>60); Globulin 2.7 g/dL (1.7-4.1); Glucose 160 mg/dL (80-110); HEMOLYSIS < 15 (0-50); Potassium 4.3 mmol/L (3.4-5.1); Sodium 136 mmol/L (137-145)
[2019-11-29 08:25] LABS: Hemoglobin A1C% w Est Avg Glu 8.8 % (4.0-6.0)
== END ==
PROVIDERS: PCP Family Medicine; Referring Provider Family Medicine; Visit Provider Family Medicine
DX: Z51.81 Encounter for therapeutic drug level monitoring (principal); E11.9 Type 2 diabetes mellitus without complications
CPT/HCPCS: 36415; 80053; 83036; 85025

== ENCOUNTER → 2019-12-26 13:46 | Outpatient (CLI) | payer OTHER, SELFPAY ==
[2019-12-26 15:55] LABS: Creatinine Urine Random 88.3 mg/dL
[2019-12-26 16:04] LABS: Microalbumi Creatinin Ratio Ur 20.3 ug/mg CR (<30); Microalbumin Urine Random 1.8 mg/dL (0-1.6)
== END ==
PROVIDERS: PCP Student in an Organized Health Care Education/Training Program; Referring Provider Student in an Organized Health Care Education/Training Program; Visit Provider Student in an Organized Health Care Education/Training Program
DX: E11.9 Type 2 diabetes mellitus without complications (principal)
CPT/HCPCS: 82043; 82570

== ENCOUNTER → 2020-01-13 09:59 | Outpatient (CLI) | payer OTHER, SELFPAY ==
--- NOTE | 2020-01-13 10:00 | DI.RAD.S_ITS ---
PROCEDURE: FL BARIUM SWALLOW W SPEECH INDICATIONS: Choking on food; recurrent pneumonia TECHNIQUE: Examination was conducted in conjunction with speech pathology per standard protocol. In the lateral projection, filming was performed of the patient swallowing. AP projection filming may also be performed with patient swallowing. COMPARISON: None. FINDINGS: Function: The oral preparatory phase appears normal, with proper containment. The subsequent oral propulsive phase, pharyngeal phase, and esophageal phase of swallowing also appear normal with all proffered substances. No laryngotracheal penetration or aspiration. No pathologic vallecular pooling. Morphology: No cricopharyngeal bar is identified. No cervical esophageal webs. No Zenker's diverticulum. No strictures. Note is made of minimal impingement on the posterior wall of the esophagus by osteophytic spurring at C5-6 through C7-T1, not to the degree that stricture or impingement to the swallowing mechanism appeared present. IMPRESSION: Normal swallowing evaluation, note is made of mild degenerative osteophyte formation along the low cervical spine as noted without mechanical obstruction to the swallowing mechanism over the course of the examination. Please refer to the dedicated speech therapy swallowing report which will be independently generated. Dictated by: Gen Culp M.D. on 01/13/2020 at 11:40 Approved by: Gen Culp M.D. on 01/13/2020 at 11:42
--- NOTE | 2020-01-13 12:27 | ST.SWALLOW ---
Visit Care Team Role Provider Type Alejandro Rosenbaum MD Attending Provider Physician Primary Care Provider Referring Provider Specialty: Internal Medicine Address: [address] [place] [address], [address], [address] Email: [email or web address] Modified Barium Swallow Study RING PACKER Modified Barium Swallow Study Start: 01/13/20 11:02 Freq: Status: Active Protocol: Document 01/13/20 11:03 LNK (Rec: 01/13/20 12:23 LNK [id number]) Modified Barium Swallow Study Total Time Visit Start Time 10:30 Visit Stop Time 11:00 Total Visit Minutes [address] Rosenbaum Reason for Referral recurrent pneumonia Setting Setting Outpatient Care Patient Information Identification Type Name,Date of Patient History Patient is a 79 year old male referred for a Modified Barium Swallow Study by his physician, Dr. Rosenbaum. According to the patient and Dr. Rosenbaum's recent note, pt has had 3 cases of pneumonia in the last 12 months. The pt questions desert fever as 2 of his recent episodes followed trips to [place]. One other episode in May 2019, he thinks, may have been COVID19. Currently, he is not having any symptoms. Pt reported that he will, at times, occasionally choke when swallowing liquids. He has not had a swallow study done. Subjective Observations Pt was seated in the flouroscopy chair. Procedures and directions were provided to the pt. He indicated that he understood and agreed to proceed. Patient Positioning Position View Lateral Imaging Lateral View Textures Administered Trials Presented Thin Liquid via Spoon,Thin Liquid via Cup,Pudding Thick Liquid via Spoon,Regular Textures Oral Phase Source: MBSIMP (TM) (C) Bolus Specific Scoring Grid Lip Closure WFL Tongue Control During Bolus Hold WFL Bolus Prep/Mastication WFL Bolus Transport/Lingual Motion WFL A/P Lingual Propulsion Delay No Oral Residue WFL Residue Clearing WFL Nasal Regurgitation No Additional Oral Phase Observations Natural teeth in good hygiene, structures and function WNL Pharyngeal Phase Source: MBSIMP (TM) (C) Bolus Specific Scoring Grid Delayed Initiation of Pharyngeal Swallow No Soft Palate Elevation WFL Tongue Base Strength/Range of Motion WFL Residue Along the Tongue Base Yes: trace to minimal Clearance of Residue Along Tongue Base WFL Laryngeal Elevation WFL Anterior Hyoid Movement WFL Epiglottic Range of Motion WFL Vallecular Residue No Laryngeal Vestibular Closure WFL Pharyngeal Stripping Wave WFL Posterior Pharyngeal Wall Residue No Upper Esophageal Sphincter Opening Mild Impairment Residue in the Pyriform Sinuses No Esophageal Clearance Upright Position Mild Impairment Pharyngoesophageal Backflow Observed No Additional Pharyngeal Phase Observations Pt presented with pharyngeal phase of swallowing WFL. No penetration into the airway, no residue build up, Some osteophytes observed to alter, but not impinge on the bolus flow. No cough/choke observed. A/P View Esophageal Observations Esophageal Function Residue was observed in the upper esophagus near the UES. Pt did not c/o a sense of bolus. It appeared that the bolus flow may be slowed, which may be interpreted as WFL for pt's age. Clinical Impressions Dysphagia Type None Patient Appropriate for Therapy No Recommendations Treatment Plan Additional Recommended Referrals pt reported he has upcoming appointment with horse and wagon driver
== END ==
PROVIDERS: PCP Student in an Organized Health Care Education/Training Program; Referring Provider Student in an Organized Health Care Education/Training Program; Visit Provider Student in an Organized Health Care Education/Training Program
DX: J98.8 Other specified respiratory disorders (principal); R09.89 Other specified symptoms and signs involving the circulatory and respiratory systems
CPT/HCPCS: 74230; 92611

== ENCOUNTER 2020-03-17 17:14 | Observation (INO) | payer OTHER, SELFPAY ==
--- NOTE | 2020-03-17 | DI.CT.S_ITS ---
PROCEDURE: CT CERVICAL SPINE WO CON INDICATIONS: FALL TECHNIQUE: Noncontrast 3 mm thick sections acquired from the skull base to the T4 level. Sagittal and coronal reformats were then constructed. For radiation dose reduction, the following was used: automated exposure control, adjustment of mA and/or kV according to patient size. COMPARISON: [facility], CT, CT HEAD/BRAIN WO CON, 03/17/2020, 17:44. FINDINGS: Image quality: Excellent. Bones: No fractures or dislocations. There is severe degenerative disease at C4-C5, C5-C6 and C6-C7. Bilateral facet arthropathy is present, most pronounced and severe at C2-C3 on the left and C3-C4 on the right. Visualized superior ribs are intact. Soft tissues: Prevertebral soft tissues are normal in thickness. No paravertebral hematomas. No apical pneumothoraces. Moderate to severe atherosclerosis in carotid arteries bilaterally. Esophagus appears concentrically thickened. IMPRESSION: 1. No cervical spine fractures. 2. Severe degenerative disc and facet disease. 3. Severe atherosclerosis. 4. Concentric thickening of the upper esophagus. Nonurgent esophagram , which may be secondary to esophagitis. Recommend clinical correlation. If clinically indicated, upper endoscopy is suggested for follow-up. Dictated by: Yury Gallo M.D. on 03/17/2020 at 18:10 Approved by: Yury Gallo M.D. on 03/17/2020 at 18:14
[2020-03-17 17:35] VITALS: BP 180/103; PULSE 120; RESP 16; TEMP 36.7; O2SAT 100; BMI 23.5
--- NOTE | 2020-03-17 17:35 | DI.CT.S_ITS ---
PROCEDURE: CT HEAD/BRAIN WO CON INDICATIONS: syncope TECHNIQUE: Noncontrast 4.5 mm thick angled axial sections acquired from the foramen magnum to the vertex, with coronal and sagittal reformats. For radiation dose reduction, the following was used: automated exposure control, adjustment of mA and/or kV according to patient size. COMPARISON: None. FINDINGS: Image quality: Excellent. CSF spaces: Basal cisterns are patent. No extra-axial fluid collections. The ventricles are symmetric in size and shape. Brain: No intracranial bleeds or masses. There is cerebral volume loss for age, with resultant ventricular and sulcal prominence. There are periventricular and deep white matter chronic small vessel ischemic changes. There is intracranial internal carotid artery atherosclerosis. Skull and face: Calvarium and visualized facial bones appear intact, without suspicious lesions. There is soft tissue contusion and a moderate to large subscalp hematoma in the right parietal occipital area. Sinuses: Visualized sinuses and mastoids are clear. IMPRESSION: 1. No acute intracranial abnormalities. 2. Cerebral volume loss and chronic microvascular ischemic changes. 3. Soft tissue contusion and a moderate to large subscalp hematoma in the right parietal occipital area. Dictated by: Yury Gallo M.D. on 03/17/2020 at 18:08 Approved by: Yury Gallo M.D. on 03/17/2020 at 18:09
--- NOTE | 2020-03-17 17:35 | DI.RAD.S_ITS ---
PROCEDURE: XR CHEST 2V INDICATIONS: syncope - ground level fall TECHNIQUE: 2 views of the chest were acquired. COMPARISON: None. FINDINGS: Surgical changes and devices: None. Lungs and pleura: Lungs are clear. No pleural effusions or pneumothorax. Mediastinum: Mediastinal contours are normal. Heart size is normal. Bones and chest wall: No suspicious bony abnormalities. Soft tissues appear unremarkable. IMPRESSION: No acute cardiopulmonary disease. Dictated by: Yury Gallo M.D. on 03/17/2020 at 18:15 Approved by: Yury Gallo M.D. on 03/17/2020 at 18:16
[2020-03-17 17:51] LABS: Add Manual Diff / Slide Review NO; Basophils Absolute Auto 100 /uL (0-100); Eosinophils Absolute Auto 100 /uL (0-450); Eosinophils Percent Auto 1.5 % (2-4); Hematocrit 40.5 % (41-53); Hemoglobin 13.3 g/dL (13.5-17.5); Lymphocytes Absolute Auto 1500 /uL (1100-4500); Lymphocytes Percent Auto 26.2 % (25-40); Mean Corpuscular HGB Conc 32.9 % (30-36); Mean Corpuscular Hemoglobin 30.4 PG (26-34); Mean Corpuscular Volume 92.3 fL (80-100); Monocytes Absolute Auto 600 /uL (0-900); Monocytes Percent Auto 10.6 % (3-14); Neutrophils Absolute Auto 3400 /uL (1500-7000); Neutrophils Percent Auto 60.7 % (50-75); Platelet Count 175 X10^3/uL (150-400); Red Blood Cell Count 4.39 X10^6/uL (4.5-5.9); Red Cell Distribution Width 15.7 % (11.6-14.8); White Blood Cell Count 5.7 X10^3/uL (4.5-11.0)
[2020-03-17 17:56] LABS: Alanine Aminotransferase 23 IU/L (<50); Albumin 4.8 g/dL (3.5-5.0); Albumin Globulin Ratio 1.5 (1.0-2.8); Alkaline Phosphatase 51 U/L (38-126); Aspartate Aminotransferase 25 IU/L (17-59); Bilirubin Total 0.6 mg/dL (0.2-1.3); Blood Urea Nitrogen 33 mg/dL (9-20); Calcium 9.4 mg/dL (8.4-10.2); Carbon Dioxide 30 mmol/L (22-32); Chloride 99 mmol/L (98-107); Creatine Kinase 129 U/L (55-170); Estimated Glomerular Filt Rate > 60.0 mL/min (>60); Globulin 3.2 g/dL (1.7-4.1); Glucose 208 mg/dL (80-110); HEMOLYSIS < 15 (0-50); Potassium 4.6 mmol/L (3.4-5.1); Sodium 137 mmol/L (137-145)
[2020-03-17 18:08] LABS: Troponin I < 0.012 ng/mL (0.01-0.034)
[2020-03-17 18:11] LABS: Creatine Kinase MB 3.92 ng/mL (<2.37)
--- NOTE | 2020-03-17 18:49 | ED_ITS ---
HPI - General Adult General Chief complaint: Syncope Stated complaint: GLF Time Seen by Provider: 03/17/20 17:53 Source: patient and EMS Mode of arrival: Wheelchair Limitations: no limitations History of Present Illness HPI narrative: Patient is a 79-year-old male. History of [id number] diabetes brought in by EMS for evaluation after patient states that he was walking on the dock near his boat with 1 of the workers. He states he was pushing a cart moving things to in from his boat. He states that he was walking on the dock and the next thing he remembers he was waking up on the ground. He did lose consciousness. Unsure as to how long that he had a loss of consciousness however he did not think it was very long. Reports words that was potentially 10-15 seconds. Patient states that prior to the syncopal episode he did not have chest pain or shortness of breath or palpitations. When he woke up he knew where he was but was confused about why he was on the ground. Patient stated that he did not want to come to the emergency department however the cylinder worker that was with him advice him that he should come. EMS was called. Since the event patient states that he feels fine. He does have an injury to the back of his head. He is not on blood thinners. Was in a cervical collar at the time my evaluation. Related Data Home Medications Medication Instructions Recorded Confirmed ASCORBIC ACID (VITAMIN C) 500 mg PO DAILY #0 12/28/10 03/17/20 BIOTIN/CA PANTOTHENATE/FOLIC2 (B50) 1 tab PO DAILY #0 12/28/10 03/17/20 CHOLECALCIFEROL (VITAMIN D) 2,000 iu PO DAILY #0 12/28/10 03/17/20 Chromium (#CHROMIUM) 200 mcg PO TID #0 12/28/10 03/17/20 Fish Oil 3,000 mg PO DAILY #0 12/28/10 03/17/20 aspirin 81 mg tablet,delayed 81 mg PO DAILY 12/26/19 03/17/20 release metformin 1,000 mg tablet 1,000 mg PO BID 12/26/19 03/17/20 rosuvastatin 5 mg tablet 5 mg PO DAILY 12/26/19 03/17/20 levothyroxine 100 mcg tablet 100 mcg PO DAILY 03/10/20 03/17/20 Previous Rx's Medication Instructions Recorded lisinopril 5 mg tablet 5 mg PO DAILY #90 tab 01/24/20 sitagliptin 50 mg tablet 50 mg PO DAILY #30 tab 03/10/20 Allergies Allergy/AdvReac Type Severity Reaction Status Date / Time bee venom protein (honey bee) Allergy Intermediate Verified 12/29/19 11:53 Review of Systems Constitutional Constitutional: Denies fatigue, Denies fever(s), Denies frequent falls and Denies headache(s) Eyes Eyes: Denies change in vision ENT Ears, Nose, Mouth, and Throat: Denies vertigo, Denies dizziness, Denies headache(s), Denies neck pain and Denies sore throat Cardiovascular Cardiovascular: Denies chest pain, Reports syncope, Denies rapid heart rate, Denies irregular heart rhythm, Denies lightheadedness, Denies palpitations, Denies dyspnea and Denies orthopnea Respiratory Respiratory: Denies cough and Denies dyspnea Gastrointestinal Gastrointestinal: Denies abdominal pain, Denies nausea and Denies vomiting Genitourinary Genitourinary: Denies dysuria Genitourinary: Denies dysuria Musculoskeletal Musculoskeletal: Denies back pain, Denies neck pain and Denies tingling Integumentary/Breasts Comments: Bump to the back of his head Neurologic Neurologic: Denies abnormal speech, Denies behavioral changes, Denies confusion, Denies vertigo, Denies dizziness, Reports syncope, Denies frequent falls, Denies headache(s) and Denies tingling Psychiatric Psychiatric: Denies anxiety, Denies behavioral changes and Denies confusion Endocrine Endocrine: Denies fatigue and Denies palpitations Hematologic/Lymphatic Hematologic/Lymphatic: Denies easy bleeding and Denies easy bruising Allergic/Immunologic Allergic/Immunologic: Denies urticaria Patient History Medical History (Updated 03/18/20 @ 02:10 by Ranjith Aguirre DO) 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) Essential hypertension (Inactive) Hypothyroidism (acquired) (Inactive) Type 2 diabetes mellitus, uncontrolled (Inactive) Social History household members: significant other Smoking Status: Never smoker alcohol intake: current Smoking Status: Never smoker alcohol intake frequency: 0-2 drinks per day Alcohol type: wine Substance Use Type: does not use Exam Initial Vital Signs Initial Vital Signs: Vital Signs Temperature 98.1 F 03/17/20 17:35 Pulse Rate 120 H 03/17/20 17:35 Respiratory Rate 16 03/17/20 17:35 Blood Pressure 180/103 H 03/17/20 17:35 Pulse Oximetry 100 03/17/20 17:35 Const General: cooperative and comfortable Limitations: mental status not altered HENMT Head: hematoma and No laceration Ears: hearing grossly normal bilaterally Face and sinus: normal facial exam Mouth: oral mucosae normal Eyes General: appearance normal, both eyes and all related structures Chest Chest: No tenderness Resp Effort & Inspection: normal respiratory effort Auscultation: clear to auscultation bilaterally Cardio Rate: tachycardic Rhythm: regular rhythm Pulses: radial pulses present GI Inspection: non-distended Palpation: soft and No firm Back/Spine/Pelvis Cervical Spine: collar present Thoracic/Lumbar Spine: No thoracic spinal tenderness and No lumbar spinal tenderness Skin Other: Contusion right occipital portion of head Neuro General: patient alert, patient awake and patient oriented x3 Cognition: normal cognition Speech: speech normal Motor: muscle tone normal throughout Sensory Exam: no sensory deficits noted Extrem General: normal to inspection, capillary refill normal and No edema Psych Appearance: grossly normal and well kempt Scores GCS [place] coma scale eye opening: Spontaneous [place] coma scale verbal response: Orientated [place] coma scale motor response: Obey commands [place] coma scale total score: 15 Course Orders Ordered: ED Orders 03/17/20 17:21 Complete Blood Count AUTO DIFF Stat Comprehensive Metabolic Panel Stat Troponin & CK Cardiac Panel Stat 03/17/20 17:24 EKG-12 Lead Stat 03/17/20 17:35 CT head/brain wo con Stat XR chest 2V Stat 03/17/20 19:34 COVID19 -ED/INPAT/OR/L&D Stat Acetaminophen (Tylenol) 650 mg PO Q6HR PRN PRN Reason: Fever/Mild Pain (1-3) Last Admin: 03/17/20 21:13 Dose: 650 mg Documented by: OLAYINKA Al Hydrox/Mg Hydrox/Simethicone (Maalox Plus) 30 ml PO Q6HR PRN PRN Reason: Dyspepsia Aspirin (Aspirin Ec) 81 mg PO DAILY JUMA Bisacodyl (Dulcolax) 10 mg [place] DAILY PRN PRN Reason: Constipation Calcium Carbonate (Tums) 1,000 mg PO Q4HR PRN PRN Reason: Dyspepsia Dextrose (D50w) 25 gm IV PRN PRN; Protocol PRN Reason: Hypoglycemia Docusate Sodium (Colace) 100 mg PO BID PRN PRN Reason: Constipation Enoxaparin Sodium (Lovenox) 40 mg SUBCUT DAILY [facility] Sodium Chloride (Normal Saline 0.9%) 1,000 mls @ 75 mls/hr IV CONT [facility] Last Admin: 03/17/20 21:09 Dose: 75 mls/hr Documented by: OLAYINKA Insulin Aspart (Novolog Flexpen) 0 unit SUBCUT ACHS [facility]; Protocol Last Admin: 03/17/20 21:10 Dose: 1 unit Documented by: OLAYINKA Cosigned by: IZZY Levothyroxine Sodium (Synthroid) 100 mcg PO DAILY [facility] Lisinopril (Zestril) 5 mg PO DAILY [facility] Metformin HCl (Glucophage) 1,000 mg PO BID [facility] Last Admin: 03/17/20 21:13 Dose: 1,000 mg Documented by: OLAYINKA Naloxone HCl (Narcan) 0.2 mg IV Q2MIN PRN PRN Reason: Opiate Reversal Ondansetron HCl (Zofran) 4 mg IV Q8HR PRN PRN Reason: Nausea And Vomiting Rosuvastatin Calcium (Crestor) 5 mg PO DAILY [facility] Sitagliptin Phosphate (Januvia) 50 mg PO DAILY [facility] Vital Signs Vital signs: Vital Signs - 8 hr 03/17/20 19:28 Temperature 98.1 F Pulse Rate 74 Respiratory Rate 16 Blood Pressure 201/91 H Pulse Oximetry 100 Medical Decision Making Lab Data Lab results reviewed: Yes I reviewed the patient's lab results. Result diagrams: 03/17/20 17:21 03/17/20 17:21 Labs: Lab Results 03/17/20 03/17/20 03/17/20 Range/Units 17:21 17:21 17:21 WBC 5.7 (4.5-11.0) X10^3/uL RBC 4.39 L (4.5-5.9) X10^6/uL Hgb 13.3 L (13.5-17.5) g/dL Hct 40.5 L (41-53) % MCV 92.3 (80-100) fL MCH 30.4 (26-34) PG MCHC 32.9 (30-36) % RDW 15.7 H (11.6-14.8) % Plt Count 175 (150-400) X10^3/uL Neut % (Auto) 60.7 (50-75) % Lymph % (Auto) 26.2 (25-40) % [place] % (Auto) 10.6 (3-14) % Eos % (Auto) 1.5 L (2-4) % Baso % (Auto) 1.0 (0-2) % Neut # (Auto) 3400 (0343-4357) /uL Lymph # (Auto) 1500 (1487-5403) /uL [place] # (Auto) 600 (0-900) /uL Eos # (Auto) 100 (0-450) /uL Baso # (Auto) 100 (0-100) /uL Sodium 137 (137-145) mmol/L Potassium 4.6 (3.4-5.1) mmol/L Chloride 99 (98-107) mmol/L Carbon Dioxide 30 (22-32) mmol/L BUN 33 H (9-20) mg/dL Creatinine 0.97 (0.66-1.25) mg/dL Estimated GFR > 60.0 (>60) mL/min BUN/Creatinine Ratio 34.0 H (6-22) Glucose 208 H (80-110) mg/dL Hemoglobin A1c 8.9 H (4.0-6.0) % Calcium 9.4 (8.4-10.2) mg/dL Magnesium (1.6-2.3) mg/dL Total Bilirubin 0.6 (0.2-1.3) mg/dL AST 25 (17-59) IU/L ALT 23 (<50) IU/L Alkaline Phosphatase 51 (38-126) U/L Total Creatine Kinase 129 (55-170) U/L CK-MB (CK-2) 3.92 H (<2.37) ng/mL CK-MB (CK-2) Rel Index 3.0 (1.5-5.0) % Troponin I < 0.012 (0.01-0.034) ng/mL Total Protein 8.0 (6.3-8.2) g/dL Albumin 4.8 (3.5-5.0) g/dL Globulin 3.2 (1.7-4.1) g/dL Albumin/Globulin Ratio 1.5 (1.0-2.8) 03/17/ Range/Units 17:21 WBC (4.5-11.0) X10^3/uL RBC (4.5-5.9) X10^6/uL Hgb (13.5-17.5) g/dL Hct (41-53) % MCV (80-100) fL MCH (26-34) PG MCHC (30-36) % RDW (11.6-14.8) % Plt Count (150-400) X10^3/uL Neut % (Auto) (50-75) % Lymph % (Auto) (25-40) % [place] % (Auto) (3-14) % Eos % (Auto) (2-4) % Baso % (Auto) (0-2) % Neut # (Auto) (1217-6143) /uL Lymph # (Auto) (8156-4865) /uL [place] # (Auto) (0-900) /uL Eos # (Auto) (0-450) /uL Baso # (Auto) (0-100) /uL Sodium (137-145) mmol/L Potassium (3.4-5.1) mmol/L Chloride (98-107) mmol/L Carbon Dioxide (22-32) mmol/L BUN (9-20) mg/dL Creatinine (0.66-1.25) mg/dL Estimated GFR (>60) mL/min BUN/Creatinine Ratio (6-22) Glucose (80-110) mg/dL Hemoglobin A1c (4.0-6.0) % Calcium (8.4-10.2) mg/dL Magnesium 2.0 (1.6-2.3) mg/dL Total Bilirubin (0.2-1.3) mg/dL AST (17-59) IU/L ALT (<50) IU/L Alkaline Phosphatase (38-126) U/L Total Creatine Kinase (55-170) U/L CK-MB (CK-2) (<2.37) ng/mL CK-MB (CK-2) Rel Index (1.5-5.0) % Troponin I (0.01-0.034) ng/mL Total Protein (6.3-8.2) g/dL Albumin (3.5-5.0) g/dL Globulin (1.7-4.1) g/dL Albumin/Globulin Ratio (1.0-2.8) Point of Care Testing Glucose POC 218 Point of care testing: Point of Care Testing Glucose POC [address] - cervical spine: Radiologist's Impression: [address] [address] [address] Scan Report Signed Patient: Ian Lee JR CMR#: [id number] : [id number]:[id number] Age/Sex: 79 / MDate of Service: 03/17/20 Loc: ED Accession Number: [id number] Procedure: CT cervical spine wo con Ordering Provider: Ranjith Aguirre D.O. PROCEDURE: CT CERVICAL SPINE WO CON INDICATIONS: FALL TECHNIQUE: Noncontrast 3 mm thick sections acquired from the skull base to the T4 level. Sagittal and coronal reformats were then constructed. For radiation dose reduction, the following was used: automated exposure control, adjustment of mA and/or kV according to patient size. COMPARISON: [facility], CT, CT HEAD/BRAIN WO CON, 03/17/2020, 17:44. FINDINGS: Image quality: Excellent. Bones: No fractures or dislocations. There is severe degenerative disease at C 4-C5, C5-C6 and C6-C7. Bilateral facet arthropathy is present, most pronounced and severe at C2-C3 on the left and C3-C4 on the right. Visualized superior ribs are intact. Soft tissues: Prevertebral soft tissues are normal in thickness. No paravertebral hematomas. No apical pneumothoraces. Moderate to severe atherosclerosis in carotid arteries bilaterally. Esophagus appears concentrically thickened. IMPRESSION: 1. No cervical spine fractures. 2. Severe degenerative disc and facet disease. 3. Severe atherosclerosis. 4. Concentric thickening of the upper esophagus. Nonurgent esophagram , which may be secondary to esophagitis. Recommend clinical correlation. If clinically colette cated, upper endoscopy is suggested for follow-up. Dictated by: Yury Gallo M.D. on 03/17/2020 at 18:10 Approved by: Yury Gallo M.D. on 03/17/2020 at 18:14 Chest x-ray: Radiologist's Impression: [address] [address] XRay Report Signed Patient: Ian Lee JR CMR#: [id number] : 1Acct:[id number] Age/Sex: 79 / MDate of Service: 03/17/20 Loc: ED Accession Number: [id number] Procedure: XR chest 2V Ordering Provider: Ranjith Aguirre D.O. PROCEDURE: XR CHEST 2V INDICATIONS: syncope - ground level fall TECHNIQUE: 2 views of the chest were acquired. COMPARISON: None. FINDINGS: Surgical changes and devices: None. Lungs and pleura: Lungs are clear. No pleural effusions or pneumothorax. Mediastinum: Mediastinal contours are normal. Heart size is normal. Bones and chest wall: No suspicious bony abnormalities. Soft tissues appear unremarkable. IMPRESSION: No acute cardiopulmonary disease. Dictated by: Yury Gallo M.D. on 03/17/2020 at 18:15 Approved by: Yury Gallo M.D. on 03/17/2020 at 18:16 CT scan - head: Radiologist's Impression: [place] [address] CT Scan Report Signed Patient: Ian Lee JR CMR#: [id number] : 1Acct:[id number] Age/Sex: 79 / MDate of Service: 03/17/20 Loc: ED Accession Number: [id number] Procedure: CT head/brain wo con Ordering Provider: Ranjith Aguirre D.O. PROCEDURE: CT HEAD/BRAIN WO CON INDICATIONS: syncope TECHNIQUE: Noncontrast 4.5 mm thick angled axial sections acquired from the foramen magnum to the vertex, with coronal and sagittal reformats. For radiation dose reduction, the following was used: automated exposure control, adjustment of mA and/or kV according to patient size. COMPARISON: None. FINDINGS: Image quality: Excellent. CSF spaces: Basal cisterns are patent. No extra-axial fluid collections. The ventricles are symmetric in size and shape. Brain: No intracranial bleeds or masses. There is cerebral volume loss for age, with resultant ventricular and sulcal prominence. There are periventricular and deep white matter chronic small vessel ischemic changes. There is intracranial internal carotid artery atherosclerosis. Skull and face: Calvarium and visualized facial bones appear intact, without suspicious lesions. There is soft tissue contusion and a moderate to large subscalp he matoma in the right parietal occipital area. Sinuses: Visualized sinuses and mastoids are clear. IMPRESSION: 1. No acute intracranial abnormalities. 2. Cerebral volume loss and chronic microvascular ischemic changes. 3. Soft tissue contusion and a moderate to large subscalp hematoma in the right parietal occipital area. Dictated by: Yury Gallo M.D. on 03/17/2020 at 18:08 Approved by: Yury Gallo M.D. on 03/17/2020 at 18:09 ECG Data Attestation: I personally reviewed and interpreted this ECG as follows: Prior ECG tracings: not available for review Interpretation: Sinus tachycardia Ventricular rate of 129 First degree AV block with a pair are notable of 272 milliseconds Right bundle-branch block Left anterior fascicular block Normal QRS QTC 553 milliseconds MDM Narrative Medical decision making narrative: Cervical collar was removed after negative CT scan. Patient had no midline tenderness. Contusion the back of his head needs no intervention. Patient tachycardic on the EKG. Does have a bifascicular block. Does have a QTC greater than 500 and a 1st degree heart block. Given the fact that he had essentially a drop attack without any prodromal symptoms concern to be a potential cardiac etiology. He had no ectopy here in the ER. Had a long discussion with the patient regarding his symptoms. Initially patient stated he did not want to be admitted to the hospital despite our conversations and my recommendations. After the patient was placed for discharge he changed his mind about being admitted. I feel that this is a proper course of action for him given his findings on his EKG. I did discuss the case with ELIGIO Blevins the night hospitalist. Will admit for further evaluation and treatment. Discharge Plan Departure Patient Disposition: Admitted as Observation Clinical Impression: Syncope, Bifascicular block, Hypertension Discharge Date/Time: 03/17/20 19:45 Admit Date/Time: 03/17/20 19:29 Admit Provider: Rambo Blevins
[2020-03-17 19:28] VITALS: BP 201/91; PULSE 74; RESP 16; TEMP 36.7; O2SAT 100
[2020-03-17 19:36] VITALS: BP 140/74; PULSE 74; RESP 16; TEMP 36.9; O2SAT 100
[2020-03-17 20:00] VITALS: BMI 23.5
[2020-03-17 20:20] VITALS: BP 190/91; PULSE 71; RESP 13; TEMP 36.9; O2SAT 98
[2020-03-17 20:25] LABS: COVID19 -Nasal RAPID Negative (Negative)
--- NOTE | 2020-03-17 20:25 | DI.ECHO.S_ITS ---
[place] [facility]---------+ [facility] +---------+ : : [address] : : : : [id number] : : : : Phone: [phone] Echocardiogram Report + + :Name: RAMA RICE Study Date: 03/18/2020 Height: 70 in : :[facility] Weight: 163 lb : : Gender: Male BSA: 1.9 m2 : :: 1940 Age: 79 yrs BP: 190/91 mmHg: :Reason For Study: SYNCOPE BIFASCICULAR BLOCK : :Ordering Physician: VALENTINO, : :KATHIA Performed By: Karissa Joy : :Referring: KATHIA AVELAR : + + Interpretation Summary The ejection fraction is estimated to be 55-60%. There is inferior wall hypokinesis. The aortic valve is moderately calcified. There is mild to moderate aortic stenosis. The mitral valve mean gradient is 4.7 mmHg. There is mild mitral stenosis. The mitral valve leaflets are moderately calcified. The ascending aorta is mildly enlarged. If there is any concern about aortic or mitral stenosis a ANNIKA would be helpful to evaluate these valves further Procedure: A two-dimensional transthoracic echocardiogram with color flow and Doppler was performed. The study quality was technically adequate. Comparison is made with the echocardiogram of 09/05/2016. The heart rate ranged between 70-76 bpm during the study. Left Ventricle: The left ventricle is normal in size and wall thickness. The ejection fraction is estimated to be 55-60%. There has been no significant change since the previous exam. There is inferior wall hypokinesis. Diastolic function could not be accurately assessed due to confounding valvular disease. Right Ventricle: The right ventricle is normal in size and function. Atria: The left atrium is borderline dilated. The right atrium is normal in size. There is no Doppler evidence for an interatrial shunt. Mitral Valve: The mitral valve leaflets are moderately calcified. There is moderate mitral annular calcification. The mitral valve mean gradient is 4.7 mmHg. There is mild mitral stenosis. There is trace mitral regurgitation. Aortic Valve: The aortic valve is moderately calcified. The peak aortic velocity is 2.5 m/sec. The aortic valve mean gradient is 15 mmHg. The calculated aortic valve area is 1.8 cm2. There is mild to moderate aortic stenosis. This is unchanged compared to the previous study. There is trace aortic regurgitation. Tricuspid Valve: The tricuspid valve is normal in structure and function. Pulmonary artery pressures cannot be estimated because of the lack of a measurable TR jet velocity but the IVC suggests a CVP of around 3 mmHg. There is trace tricuspid regurgitation. Pulmonic Valve: The pulmonic valve leaflets are thin and pliable; valve motion is normal. There is a trace or physiologic amount of pulmonic regurgitation. Great Vessels: The aortic root is normal size. The ascending aorta is mildly enlarged. The IVC is of normal diameter and collapses greater than 50% with a sniff. This suggests a low right atrial pressure of 3 mm Hg. Pericardium/ Pleura There is no pericardial effusion. There is no pleural effusion. MMode/2D Measurements & Calculations LVIDd: 4.5 cm LVOT diam: 2.4 cm LVIDs: 3.2 cm Ao root diam: 3.8 cm FS: 29.4 % asc Aorta Diam: 3.5 cm IVSd: 0.81 cm Ao Arch Diam (Prox Trans): 2.7 cm LVPWd: 0.68 cm LV salgado. diameter/BSA (cm/m^2): 2.4 LV sys. diameter/BSA (cm/m^2): 1.7 LA A2 area: 22.2 cm2 RA long axis: 4.9 cm LA A4 area: 16.2 cm2 RA area: 14.0 cm2 LA length (vol): 4.8 cm RA vol: 34.2 ml LA vol: 64.1 ml RA : 17.9 ml/m2 LA vol index: 33.5 ml/m2 IVC diam: 1.3 cm RVD1 (basal): 3.7 cm TAPSE: 1.7 cm Doppler Measurements & Calculations Ao V2 max: 253.1 cm/sec LVOT Max Jakub: 96.1 cm/sec Ao V2 mean: 180.8 cm/sec LV V1 max P.7 mmHg Ao max P.6 mmHg LV V1 VTI: 21.2 cm Ao mean P.0 mmHg VIRIDIANA(I,D): 1.8 cm2 Ao V2 VTI: 55.9 cm VIRIDIANA(V,D): 1.8 cm2 sev ratio: 0.38 VIRIDIANA indexed to BSA (cm^2/m^2): 0.92 MV E max jakub: 85.1 cm/sec PA V2 max: 61.3 cm/sec MV A max jakub: 179.3 cm/sec PA V2 mean: 35.7 cm/sec MV E/A: 0.47 PA mean P.64 mmHg Med Peak E' Jakub: 3.6 cm/sec PA pr(Accel): 25.9 mmHg E/E' med: 23.9 Lat Peak E' Jakub: 7.6 cm/sec E/E' lat: 11.2 E/e' average: 17.6 MV dec time: 0.35 sec MVA(VTI): 2.4 cm2 MV V2 mean: 96.7 cm/sec SV(LVOT): 98.5 ml MV mean P.7 mmHg MV V2 VTI: 41.6 cm Reading Physician:02:14 PM
[2020-03-17 20:42] LABS: Hemoglobin A1C% w Est Avg Glu 8.9 % (4.0-6.0)
[2020-03-17] MEDS: SODIUM CHLORIDE 0.9% 1,000 ML 75 ML IV (21:09)
[2020-03-17] MEDS: INSULIN ASPART 100 UNIT/ML INSULN PEN SUBCUT (21:10)
[2020-03-17] MEDS: METFORMIN HCL 500 MG TABLET 1000 MG PO (21:13)
[2020-03-17] MEDS: ACETAMINOPHEN 325 MG TABLET 650 MG PO (21:13)
[2020-03-17 21:31] VITALS: BMI 23.6
--- NOTE | 2020-03-17 22:47 | PC.NURSE ---
Pt admitted to 28 per stretcher from ED @ 2200. Admission assessment completed, IV of NS @ 75cc/hr to R AC IV. NSVS WNL. PERRLA 4mm. Equal strength bilaterally. Small abrasion to posterior scalp noted. Pt complains of slight headache, tylenol tabs 2 given. Oriented to environment, bed in low and locked position, call light within reach.
[2020-03-18] VITALS (9 sets, daily range): BP systolic 124–189; BP diastolic 60–86; PULSE 57–90; RESP 12–18; TEMP 36.4–37.1; O2SAT 92–99
[2020-03-18] MEDS: ACETAMINOPHEN 325 MG TABLET 650 MG PO (03:48)
[2020-03-18 05:06] LABS: BUN Creatinine Ratio 33.3 (6-22); Blood Urea Nitrogen 27 mg/dL (9-20); Calcium 8.8 mg/dL (8.4-10.2); Carbon Dioxide 31 mmol/L (22-32); Chloride 103 mmol/L (98-107); Estimated Glomerular Filt Rate > 60.0 mL/min (>60); Glucose 182 mg/dL (80-110); HEMOLYSIS < 15 (0-50); Potassium 4.2 mmol/L (3.4-5.1); Sodium 139 mmol/L (137-145)
[2020-03-18 05:14] LABS: NT-proBNP (BNP-Adult 18+) 487 pg/mL (<450)
[2020-03-18 05:35] LABS: TSH w/ Reflex to FT4 2.68 uIU/mL (0.47-4.68)
--- NOTE | 2020-03-18 06:47 | PC.NURSE ---
Stock Worker And Deliverer Note-Patient is A/Ox4, ambulated into BR x3 with assist with IV pole and equipment, steady, denies dizziness, SB/SR, 1st AVB, BBB, VSS. Has scrotal edema for which he has an appointment with MD in [place] at 2:30pm this afternoon. Tylenol given for headache to abrasion and hematoma to right posterior scalp.
--- NOTE | 2020-03-18 07:37 | P.HP_ITS ---
History of Present Illness History of Present Illness Date Patient Seen: 03/17/20 Time Patient Seen: 20:30 Chief complaint: GLF Narrative: Mr. Ian Lee is a 79-year-old male with a past medical history of hypertension, hyperlipidemia, diabetes type 2 non insulin dependent, hypothyroidism and heart murmur who presents to the ER following syncopal epi sode. The patient was relieved cart back [place] involving no lifting or straining. He was talking to the iuss master analyst and states the next thing he knew he was looking up at him from the ground. No seizure activity was witnessed in the patient denies prodrome all symptoms of visual changes lightheadedness or dizziness, no chest pain or diaphoresis. The patient did strike his head complaints of right parietal contusion but denies neck or back pain. The patient has had no previous similar episodes. He does state that he has been under a lot of stress. He for reports no recent illness, fevers or chills,, cold or flu symptoms. He denies complaints of chest pain or palpitati ons. He has no shortness of breath cough or wheezing. He has had no abdominal pain, nausea or vomiting and denies changes in bowel or bladder habits. Upon arrival to the ER the patient is afebrile with temperature 98.1?, heart rate of 120, hypertensive at 180/103, respirations 16 saturating 100% on room air. A head CT is obtained which finds no acute intracranial abnormalities, cerebral volume loss, chronic microvascular ischemic changes, scalp contusion right parietal occipital head. CT of the cervical spine finds severe degenerative disc and facet disease., incidental finding of concentric thickening of the upper esophagus. Chest x-ray is negative for acute cardiopulmonary pathology. On laboratory analysis he has white count of 5.7, hemoglobin of 13.3, hematocrit of 40.5 and platelets 175. Electrolytes within normal limits and has a BUN of 33 and creatinine 0.97. His nonfasting glucose is 208. His liver functions are all within normal limits. Has a total CK of 129, MB of 3.92 with an index of 3.0. His troponin is negative at less than 0.012. 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 He has a prolonged QTC at 553 milliseconds. Covered screening is negative. No interventions are undertaken in the ER the patient is admitted to the hospitalist service for syncope. Patient History Medical History 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) Essential hypertension (Inactive) Hyperlipidemia (Acute) Hypothyroidism (acquired) (Inactive) Type 2 diabetes mellitus, uncontrolled (Inactive) Surgical History History of right-sided carotid endarterectomy (Acute) Family & Social History Family History (Updated 03/18/20 @ 08:04 by LILIA Ocampo) Father No significant medical problems Mother Diabetes mellitus Grandmother Diabetes mellitus Social History: household members significant other Prior Living Arrangements House Safety & Behavioral: Feels Safe in Current Yes Environment Been Physically Hurt or No Threatened By a Person Suicidal Ideation Description None Tobacco & Substance use: Smoking Status Never smoker alcohol intake current alcohol intake frequency 0-2 drinks per day Substance Use Type does not use Meds Home Medications and Allergies Home Medications Medication Instructions Recorded Confirmed Type ASCORBIC ACID (VITAMIN C) 500 mg PO DAILY #0 12/28/10 03/17/20 History BIOTIN/CA PANTOTHENATE/FOLIC2 (B50) 1 tab PO DAILY #0 12/28/10 03/17/20 History CHOLECALCIFEROL (VITAMIN D) 2,000 iu PO DAILY #0 12/28/10 03/17/20 History Chromium (#CHROMIUM) 200 mcg PO TID #0 12/28/10 03/17/20 History Fish Oil 3,000 mg PO DAILY #0 12/28/10 03/17/20 History aspirin 81 mg tablet,delayed 81 mg PO DAILY 12/26/19 03/17/20 History release metformin 1,000 mg tablet 1,000 mg PO BID 12/26/19 03/17/20 History rosuvastatin 5 mg tablet 5 mg PO DAILY 12/26/19 03/17/20 History lisinopril 5 mg tablet 5 mg PO DAILY #90 tab 01/24/20 03/17/20 Rx levothyroxine 100 mcg tablet 100 mcg PO DAILY 03/10/20 03/17/20 History sitagliptin 50 mg tablet 50 mg PO DAILY #30 tab 03/10/20 03/17/20 Rx Allergies Allergy/AdvReac Type Severity Reaction Status Date / Time bee venom protein (honey bee) Allergy Intermediate Verified 12/29/19 11:53 Review of Systems Review of Systems ROS: Yes All systems reviewed with the patient and are negative except as otherwise documented Exam Vital Signs (past 8 hours): - 03/18/20 00:20 03/18/20 01:27 03/18/20 04:00 Temperature 97.5 F L 97.8 F Pulse Rate 66 57 L 61 Respiratory Rate 18 12 16 Blood Pressure 124/60 147/74 H Pulse Oximetry 97 97 96 Oxygen Delivery Method Room Air Narrative Exam Narrative: GENERAL APPEARANCE: well developed, well nourished, in no acute distress. HEENT: Palpable contusion right posterior head without active bleeding, PERRLA, conjunctiva clear, EOMs intact without nystagmus, no facial tenderness to palpation, no rhinorrhea or epistaxis, mucous membranes are moist and pink. NECK/THYROID: Well-healed surgical scar right neck, nontender to palpation, no step-offs, no muscular spasms on palpation, no JVD, no carotid bruit, no thyromegaly, trachea midline. LYMPH NODES: no cervical or supraclavicular lymphadenopathy. SKIN: [place], warm and dry, no visible rashes. HEART: regular rate and rhythm, S1-S2, 1/6 systolic murmur right upper sternal border, no rubs or gallops, brisk capillary refill, no edema LUNGS: clear to auscultation bilaterally, no coarseness crackles or wheezing, no cough present CHEST: Symmetrical movement, no accessory muscle use, good tidal volume. ABDOMEN: Soft, no distention, no abdominal tenderness, no organomegaly, active bowel tones. BACK: nontender to palpation, straight leg raise without back pain EXTREMITIES: moves all extremities, strength is 5/5 and symmetrical, no deformities or joint effusions. NEUROLOGIC: AAO x4, no focal neurologic deficits, cranial nerves II-XII grossly intact, sensation intact to light touch, hearing grossly normal to speech. PSYCH: Good eye contact, cooperative, stable behavior Objective Labs Result Diagrams: 03/17/20 17:21 03/18/20 04:25 Labs: Laboratory Results - last 24 hr 03/17/20 03/17/20 03/17/20 17:21 17:21 17:21 WBC 5.7 RBC 4.39 L Hgb 13.3 L Hct 40.5 L MCV 92.3 MCH 30.4 MCHC 32.9 RDW 15.7 H Plt Count 175 Neut % (Auto) 60.7 Lymph % (Auto) 26.2 [place] % (Auto) 10.6 Eos % (Auto) 1.5 L Baso % (Auto) 1.0 Neut # (Auto) 3400 Lymph # (Auto) 1500 [place] # (Auto) 600 Eos # (Auto) 100 Baso # (Auto) 100 Sodium 137 Potassium 4.6 Chloride 99 Carbon Dioxide 30 BUN 33 H Creatinine 0.97 Estimated GFR > 60.0 BUN/Creatinine Ratio 34.0 H Glucose 208 H Hemoglobin A1c 8.9 H Calcium 9.4 Magnesium Total Bilirubin 0.6 AST 25 ALT 23 Alkaline Phosphatase 51 Total Creatine Kinase 129 CK-MB (CK-2) 3.92 H CK-MB (CK-2) Rel Index 3.0 Troponin I < 0.012 NT-Pro-B Natriuret Pep Total Protein 8.0 Albumin 4.8 Globulin 3.2 Albumin/Globulin Ratio 1.5 TSH Nasal Screen MRSA (PCR) COVID-19 PCR 03/17/20 03/17/20 03/17/20 17:21 19:34 20:28 WBC RBC Hgb Hct MCV MCH MCHC RDW Plt Count Neut % (Auto) Lymph % (Auto) [place] % (Auto) Eos % (Auto) Baso % (Auto) Neut # (Auto) Lymph # (Auto) [place] # (Auto) Eos # (Auto) Baso # (Auto) Sodium Potassium Chloride Carbon Dioxide BUN Creatinine Estimated GFR BUN/Creatinine Ratio Glucose Hemoglobin A1c Calcium Magnesium 2.0 Total Bilirubin AST ALT Alkaline Phosphatase Total Creatine Kinase CK-MB (CK-2) CK-MB (CK-2) Rel Index Troponin I NT-Pro-B Natriuret Pep Total Protein Albumin Globulin Albumin/Globulin Ratio TSH Nasal Screen MRSA (PCR) Negative for mrsa COVID-19 PCR Negative 03/18/20 03/18/20 04:25 04:25 WBC RBC Hgb Hct MCV MCH MCHC RDW Plt Count Neut % (Auto) Lymph % (Auto) [place] % (Auto) Eos % (Auto) Baso % (Auto) Neut # (Auto) Lymph # (Auto) [place] # (Auto) Eos # (Auto) Baso # (Auto) Sodium 139 Potassium 4.2 Chloride 103 Carbon Dioxide 31 BUN 27 H Creatinine 0.81 Estimated GFR > 60.0 BUN/Creatinine Ratio 33.3 H Glucose 182 H Hemoglobin A1c Calcium 8.8 Magnesium Total Bilirubin AST ALT Alkaline Phosphatase Total Creatine Kinase CK-MB (CK-2) CK-MB (CK-2) Rel Index Troponin I NT-Pro-B Natriuret Pep 487 H Total Protein Albumin Globulin Albumin/Globulin Ratio TSH 2.68 Nasal Screen MRSA (PCR) COVID-19 PCR Assessment & Plan Assessment & Plan narrative: This is a 79-year-old male patient who had a sudden syncope without prodrome. Was not associated with any food lifting or stress. 1. Syncopal episode, probable arrhythmogenic, active -patient with sudden syncope without prodromal symptoms. Patient is tachycardic with heart rate 120s upon arrival to the ER that quickly normalized to 70s. Patient will remain on telemetry, monitor for arrhythmias. -upon arrival to the ER the patient is in sinus tachycardia 129 with a first- degree AV block, right bundle branch block and left anterior fascicular block and septal infarct. -Troponin is negative at less than 0.012. Total CK is 129 with a CK-MB of 3.92 index of 3.0. -no evidence of infection with a low white count of 5.7 without shift and no evidence of anemia with a hemoglobin of 13.3. He was not lifting and straining. -the patient does appear to be mildly dry with a BUN of 33 and creatinine 0.97, will gently rehydrate with normal saline 75 cc/hour. -will obtain echocardiogram. 2. Ground level fall, acute blunt head trauma, present on admission, active. -the patient stained blunt head trauma does complain of dull headache, he denies visual changes, vertigo or confusion. -CT of head finds no intercranial abnormalities or fractures. Study nodes scalp contusion right parietal occipital head. -no other complaints of pain or bony injury. 3. Hypertension, chronic, stable -patient is hypertensive on arrival 180/103 with pressure is elevated as high as 201/91. Following admission to the floor blood pressure normalizes to 120s to 140s systolic. -patient does report headache related to blunt trauma but no visual changes or other neurologic complaints. -patient reports being on ?prophylactic? lisinopril 5 mg daily. -will follow blood cultures closely. 4. Diabetes type 2, [id number], uncontrolled, chronic, stable -glucose on admission is 208 mg per dL -patient reports upper trending blood sugars with poor glycemic control on Amaryl. The patient was previously on sitagliptin and transferred insurance is required exhausting preferred agents before using sitagliptin. -patient continues to take metformin 1000 mg twice daily. -ordered fingersticks blood sugars a.c. HS, coverage with low-dose correctional insulin. -will recheck hemoglobin A1c. 5. Acquired hypothyroidism, chronic, stable -continue patient's home regimen of levothyroxine 100 mcg daily -will check thyroid level. VTE prophylaxis: Enoxaparin IV fluid: Normal saline 75 cc/hour Diet: Constant carbohydrate, heart healthy Code status: Full code, patient designates Li mccormick to be his surrogate decision maker. The patient is admitted to the hospital for cardiac monitoring related to syncopal episode of unclear etiology. The patient is admitted as observation with expected length of stay to be less than 2 midnights. COVID-19 COVID-19 status: Negative Result date/Date tested (Pos, Neg/Pending): 03/10/20 Scores GCS [place] coma scale eye opening: Spontaneous Tesha coma scale verbal response: Orientated [place] coma scale motor response: Obey commands Vi[place] coma scale total score: 15 Quality VTE Deep Vein Thrombosis/Pulmonary Embolism Present on Admission: No
[2020-03-18] MEDS: lisinopriL 5 MG TABLET PO (08:40)
[2020-03-18] MEDS: LEVOTHYROXINE 100 MCG TABLET PO (08:40)
[2020-03-18] MEDS: SITAGLIPTIN 50 MG TABLET PO (08:41)
[2020-03-18] MEDS: ROSUVASTATIN 10 MG TABLET 5 MG PO (08:41)
[2020-03-18] MEDS: ASPIRIN EC 81 MG TABLET PO (08:41)
[2020-03-18] MEDS: METFORMIN HCL 500 MG TABLET 1000 MG PO (08:41)
[2020-03-18] MEDS: ENOXAPARIN 40 MG/0.4 ML SYRINGE SUBCUT (08:41)
[2020-03-18] MEDS: INSULIN ASPART 100 UNIT/ML INSULN PEN SUBCUT ×2 (08:42→12:22)
[2020-03-18] MEDS: TRAMADOL 50 MG TABLET PO (08:56)
--- NOTE | 2020-03-18 12:04 | CM.DANOTE ---
DCP: Case received, EMR reviewed and met with patient. Significant other, Li Johnson, was also in the room. Introduced self and role. Was able to obtain information from patient regarding his baseline activity level prior to admit. DCP assessment completed with information currently available. Patient is a 79 year old male who admitted yesterday evening to the care of the hospitalist team. PCP: Dr. Rosenbaum. Payer: confirmed: [facility]. Patient came to the hospital vie ambulance secondary to a ground level fall caused by syncope. Patient had been on the dock by where his boat is, doing some lifting, and collapsed to the ground. He was brought here by EMS. Met with patient and his significant other, Jaleesa Johnson, who lives with him. They have been together for approximately 20 years. Patient is independent at baseline, is active. Stated, he ended up with a bump on the back of his head, but he has been able to ambulate to the commode. Patient will be having an echocardiam here at the hospital at approximately 1300. P: DCP to continue to follow. Patient should be able to go home when test results are in, and he is deemed medically stable. Deisi David RN/[employer]
--- NOTE | 2020-03-18 16:10 | PM.DS.1 ---
History of Present Illness History of Present Illness Chief complaint: GLF Narrative: Mr. Ian Lee is a 79-year-old male with a past medical history of hypertension, hyperlipidemia, diabetes type 2 non insulin dependent, hypothyroidism and heart murmur who presents to the ER following syncopal episode. The patient was relieved cart back [place] his [place] involving no lifting or straining. He was talking to the build master and states the next thing he knew he was looking up at him from the ground. No seizure activity was witnessed in the patient denies prodrome all symptoms of visual changes lightheadedness or dizziness, no chest pain or diaphoresis. The patient did strike his head complaints of right parietal contusion but denies neck or back pain. The patient has had no previous similar episodes. He does state that he has been under a lot of stress. He for reports no recent illness, fevers or chills,, cold or flu symptoms. He denies complaints of chest pain or palpitations. He has no shortness of breath cough or wheezing. He has had no abdominal pain, nausea or vomiting and denies changes in bowel or bladder habits. Upon arrival to the ER the patient is afebrile with temperature 98.1?, heart rate of 120, hypertensive at 180/103, respirations 16 saturating 100% on room air. A head CT is obtained which finds no acute intracranial abnormalities, cerebral volume loss, chronic microvascular ischemic changes, scalp contusion right parietal occipital head. CT of the cervical spine finds severe degenerative disc and facet disease., incidental finding of concentric thickening of the upper esophagus. Chest x-ray is negative for acute cardiopulmonary pathology. On laboratory analysis he has white count of 5.7, hemoglobin of 13.3, hematocrit of 40.5 and platelets 175. Electrolytes within normal limits and has a BUN of 33 and creatinine 0.97. His nonfasting glucose is 208. His liver functions are all within normal limits. Has a total CK of 129, MB of 3.92 with an index of 3.0. His troponin is negative at less than 0.012. 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 He has a prolonged QTC at 553 milliseconds. Covered screening is negative. No interventions are undertaken in the ER the patient is admitted to the hospitalist service for syncope. Discharge Providers Provider Date of admission: 03/17/20 19:29 Discharge Date: 03/18/20 Primary care physician: Alejandro Rosenbaum MD Consults: 03/17/20 20:24 Consult to Discharge Planning Routine Comment: Discharge provider: Amor Ivory MD Summary Hospital Course Discharge Diagnosis: 1. Syncope 2. Bifascicular block on EKG 3. Mild mitral stenosis 4. Mild to moderate aortic stenosis 5. Mild enlargement of ascending aorta 6. Type 2 diabetes, without use of insulin, poor control 7. Essential hypertension Hospital Course: Patient was admitted due to syncopal event which occurred while he was standing outside and talking to someone. His EKG showed sinus rhythm with first-degree AV block and bifascicular block. Telemetry was normal. His echo showed normal LVEF 55-60%, inferior wall hypokinesis, moderately calcified aortic valve with mild to moderate aortic stenosis which is not changed from echo in 2017. Also noted was mild mitral stenosis with a moderately calcified mitral valve and unclear if this was present on 2017 echo. Patient was provided gentle hydration and observed overnight and is stable for discharge. Etiology of syncope is not exactly clear though he may have been mildly volume depleted as contributing factor. He is advised to maintain good fluid intake. He will see Dr. Louise his PCP for follow-up. He is advised to get cardiology referral. Status at Discharge Cognitive/behavioral status at discharge: oriented Functional status at discharge: independent ambulation Overall status at discharge: patient is back to baseline Exam Vital Signs (past 8 hours): - 03/18/20 09:06 03/18/20 10:20 03/18/20 13:38 Temperature 98.7 F Pulse Rate 74 90 75 Respiratory Rate 18 16 Blood Pressure 163/84 H 130/69 Pulse Oximetry 98 98 92 Oxygen Delivery Method Room Air Oxygen Flow Rate 0 Objective Labs Result Diagrams: 03/17/20 17:21 03/18/20 04:25 Labs: Laboratory Results - last 24 hr 03/17/20 03/17/20 03/17/20 17:21 17:21 17:21 WBC 5.7 RBC 4.39 L Hgb 13.3 L Hct 40.5 L MCV 92.3 MCH 30.4 MCHC 32.9 RDW 15.7 H Plt Count 175 Neut % (Auto) 60.7 Lymph % (Auto) 26.2 [place] % (Auto) 10.6 Eos % (Auto) 1.5 L Baso % (Auto) 1.0 Neut # (Auto) 3400 Lymph # (Auto) 1500 [place] # (Auto) 600 Eos # (Auto) 100 Baso # (Auto) 100 Sodium 137 Potassium 4.6 Chloride 99 Carbon Dioxide 30 BUN 33 H Creatinine 0.97 Estimated GFR > 60.0 BUN/Creatinine Ratio 34.0 H Glucose 208 H Hemoglobin A1c 8.9 H Calcium 9.4 Magnesium Total Bilirubin 0.6 AST 25 ALT 23 Alkaline Phosphatase 51 Total Creatine Kinase 129 CK-MB (CK-2) 3.92 H CK-MB (CK-2) Rel Index 3.0 Troponin I < 0.012 NT-Pro-B Natriuret Pep Total Protein 8.0 Albumin 4.8 Globulin 3.2 Albumin/Globulin Ratio 1.5 TSH Nasal Screen MRSA (PCR) COVID-19 PCR 03/17/20 03/17/20 03/17/20 17:21 19:34 20:28 WBC RBC Hgb Hct MCV MCH MCHC RDW Plt Count Neut % (Auto) Lymph % (Auto) [place] % (Auto) Eos % (Auto) Baso % (Auto) Neut # (Auto) Lymph # (Auto) [place] # (Auto) Eos # (Auto) Baso # (Auto) Sodium Potassium Chloride Carbon Dioxide BUN Creatinine Estimated GFR BUN/Creatinine Ratio Glucose Hemoglobin A1c Calcium Magnesium 2.0 Total Bilirubin AST ALT Alkaline Phosphatase Total Creatine Kinase CK-MB (CK-2) CK-MB (CK-2) Rel Index Troponin I NT-Pro-B Natriuret Pep Total Protein Albumin Globulin Albumin/Globulin Ratio TSH Nasal Screen MRSA (PCR) Negative for mrsa COVID-19 PCR Negative 03/18/20 03/18/20 04:25 04:25 WBC RBC Hgb Hct MCV MCH MCHC RDW Plt Count Neut % (Auto) Lymph % (Auto) [place] % (Auto) Eos % (Auto) Baso % (Auto) Neut # (Auto) Lymph # (Auto) [place] # (Auto) Eos # (Auto) Baso # (Auto) Sodium 139 Potassium 4.2 Chloride 103 Carbon Dioxide 31 BUN 27 H Creatinine 0.81 Estimated GFR > 60.0 BUN/Creatinine Ratio 33.3 H Glucose 182 H Hemoglobin A1c Calcium 8.8 Magnesium Total Bilirubin AST ALT Alkaline Phosphatase Total Creatine Kinase CK-MB (CK-2) CK-MB (CK-2) Rel Index Troponin I NT-Pro-B Natriuret Pep 487 H Total Protein Albumin Globulin Albumin/Globulin Ratio TSH 2.68 Nasal Screen MRSA (PCR) COVID-19 PCR Discharge Plan Discharge Plan Patient Disposition: Home Discharge comment: Please follow up with Dr. Rosenbaum for this hospital stay. Maintain good fluid intake. Your ECHO showed mild-moderate aortic stenosis, mild mitral stenosis and slight enlargement of the ascending aorta. You have a bifascicular block on EKG. No arrhythmia events were seen on your telemetry monitoring. Discharge orders & Medications Prescriptions: Continued BIOTIN/CA PANTOTHENATE/FOLIC2 (B50) 1 tab PO DAILY Qty: 0 RF: 0 Fish Oil 3,000 mg PO DAILY Qty: 0 RF: 0 ASCORBIC ACID (VITAMIN C) 500 mg PO DAILY Qty: 0 RF: 0 CHOLECALCIFEROL (VITAMIN D) 2,000 iu PO DAILY Qty: 0 RF: 0 Chromium (#CHROMIUM) 200 mcg PO TID Qty: 0 RF: 0 lisinopril 5 mg tablet 5 mg PO DAILY Qty: 90 RF: 1 rosuvastatin 5 mg tablet 5 mg PO DAILY RF: 0 metformin 1,000 mg tablet 1,000 mg PO BID RF: 0 aspirin [Adult Aspirin Regimen] 81 mg tablet,delayed release (DR/EC) 81 mg PO DAILY RF: 0 levothyroxine 100 mcg tablet 100 mcg PO DAILY RF: 0 Januvia 50 mg tablet 50 mg PO DAILY Qty: 30 RF: 0 Follow up/Referrals: Alejandro Rosenbaum MD [Primary Care Provider] - Diet/Activity/Treatments Diet: Diet as Tolerated Visit Report/Discharge Packet Instructions: DI for Syncope in Adults (Fainting) Discharge Data Primary Care Provider: Alejandro Rosenbaum Attending Provider: Rambo Blevins Admit Date/Time: 03/17/20 19:29 Quality VTE Deep Vein Thrombosis/Pulmonary Embolism Present on Admission: No
[2020-03-18] MEDS: ONDANSETRON 4 MG/2 ML INJ IV (16:32)
--- NOTE | 2020-03-18 17:36 | PC.NURSE ---
After discharge order was written, patient had two bouts of nausea with emesis. BP was 187/79, HR normal, and patient declined a blood sugar check. Dr. Ivory was notified and suspected it was related to previous pain meds. Patient was given IV Zofran and rested for 45mins before indicating he felt like he was ready to leave. Discharge instruction were given, including direction to follow up with PCP about Echo results and no change in home meds. IV and tele were removed. Patient taken downstairs to private car in wheelchair accompanied by . Patient had no concerns or questions about discharge.
== END 2020-03-18 17:41 | disposition home or self-care (01) ==
LOC: ED 19:24 → ICU 03-18 09:46
PROVIDERS: Admitting Provider Nurse Practitioner Adult Health; Emergency Provider Emergency Medicine; PCP Student in an Organized Health Care Education/Training Program; Referring Provider Emergency Medicine; Visit Provider Nurse Practitioner Adult Health
DX: R55 Syncope and collapse (principal); E11.9 Type 2 diabetes mellitus without complications; Z79.84 Long term (current) use of oral hypoglycemic drugs; W18.39XA Other fall on same level, initial encounter; S00.83XA Contusion of other part of head, initial encounter; Z11.59 Encounter for screening for other viral diseases; I10 Essential (primary) hypertension; I45.2 Bifascicular block; I35.0 Nonrheumatic aortic (valve) stenosis
CPT/HCPCS: 36415; 70450; 71046; 72125; 80048; 80053; 82550; 82553; 82962; 83036; 83735; 83880; 84443; 84484; 85025; 87635; 87797; 93005; 93306; 96361; 96372; 96374; 99284; G0378; J1650; J2405

== ENCOUNTER → 2020-05-30 12:36 | Outpatient (CLI) | payer OTHER, SELFPAY ==
[2020-05-30 13:48] LABS: Hemoglobin A1C% w Est Avg Glu 9.8 % (4.0-6.0)
== END ==
PROVIDERS: PCP Student in an Organized Health Care Education/Training Program; Referring Provider Student in an Organized Health Care Education/Training Program; Visit Provider Student in an Organized Health Care Education/Training Program
DX: E11.65 Type 2 diabetes mellitus with hyperglycemia (principal)
CPT/HCPCS: 36415; 83036

== ENCOUNTER → 2020-07-23 12:34 | Outpatient (CLI) | payer OTHER, SELFPAY ==
[2020-07-23 13:27] LABS: Hemoglobin A1C% w Est Avg Glu 8.6 % (4.0-6.0)
== END ==
PROVIDERS: PCP Student in an Organized Health Care Education/Training Program; Referring Provider Student in an Organized Health Care Education/Training Program; Visit Provider Student in an Organized Health Care Education/Training Program
DX: E11.65 Type 2 diabetes mellitus with hyperglycemia (principal)
CPT/HCPCS: 36415; 83036

== ENCOUNTER → 2020-10-20 10:48 | Outpatient (CLI) | payer OTHER, SELFPAY ==
[2020-10-20 12:29] LABS: Hemoglobin A1C% w Est Avg Glu 8.6 % (4.0-6.0)
[2020-10-20 12:35] LABS: BUN Creatinine Ratio 32.5 (6-22); Blood Urea Nitrogen 25 mg/dL (9-20); Estimated Glomerular Filt Rate > 60.0 mL/min (>60)
== END ==
PROVIDERS: PCP Student in an Organized Health Care Education/Training Program; Referring Provider Student in an Organized Health Care Education/Training Program; Visit Provider Student in an Organized Health Care Education/Training Program
DX: E11.65 Type 2 diabetes mellitus with hyperglycemia (principal)
CPT/HCPCS: 36415; 82565; 83036; 84520

== ENCOUNTER 2020-10-30 08:15 | Emergency (ER) | payer OTHER, SELFPAY ==
[2020-10-30] VITALS (17 sets, daily range): BP systolic 137–176; BP diastolic 67–100; PULSE 66–87; RESP 13–24; TEMP 37.1; O2SAT 93–99; BMI 23.6
--- NOTE | 2020-10-30 08:26 | DI.RAD.S_ITS ---
PROCEDURE: XR CHEST 1V INDICATIONS: chest pain TECHNIQUE: One view of the chest was acquired. COMPARISON: [facility], CR, XR CHEST 2V, 03/17/2020, 16:44. FINDINGS: Surgical changes and devices: None. Lungs and pleura: Lungs are clear. No pleural effusions or pneumothorax. Mediastinum: Mediastinal contours appear normal. Heart size is normal. Bones and chest wall: No suspicious bony lesions. Overlying soft tissues appear unremarkable. IMPRESSION: Normal for age, source of current chest pain symptoms is not seen. Dictated by: Gen Culp M.D. on 10/30/2020 at 9:02 Approved by: Gen Culp M.D. on 10/30/2020 at 9:03
[2020-10-30 08:37] LABS: Add Manual Diff / Slide Review NO; Basophils Absolute Auto 0 /uL (0-100); Basophils Percent Auto 0.7 % (0-2); Eosinophils Absolute Auto 0 /uL (0-450); Eosinophils Percent Auto 0.8 % (2-4); Hematocrit 38.5 % (41-53); Hemoglobin 12.6 g/dL (13.5-17.5); Lymphocytes Absolute Auto 1300 /uL (1100-4500); Lymphocytes Percent Auto 20.4 % (25-40); Mean Corpuscular HGB Conc 32.7 % (30-36); Mean Corpuscular Hemoglobin 29.9 PG (26-34); Mean Corpuscular Volume 91.2 fL (80-100); Monocytes Absolute Auto 600 /uL (0-900); Monocytes Percent Auto 9.1 % (3-14); Neutrophils Absolute Auto 4300 /uL (1500-7000); Platelet Count 198 X10^3/uL (150-400); Red Blood Cell Count 4.23 X10^6/uL (4.5-5.9); White Blood Cell Count 6.2 X10^3/uL (4.5-11.0)
--- NOTE | 2020-10-30 08:39 | ED.DIZZY ---
HPI - Dizziness General Chief Complaint: Syncope Stated Complaint: VERTIGO Time Seen by Provider: 10/30/20 08:38 Source: patient Mode of arrival: Family Vehicle Limitations: no limitations History of Present Illness HPI Narrative: Patient is a 80-year-old male with history of diabetes, hypertension, hyperlipidemia presenting with dizziness. He states that they are camping in an the camper was slightly tilted the night before hour he slept on his head he woke up a little dizzy but was able to go about the day. They ate lunch and thought he maybe ate a bad burrito at lunchtime he started getting some nausea and the dizziness got worse. Dizziness is worse standing or sitting but is completely soft while lying still. He has no numbness tingling or weakness. He was able to sleep last night without difficulty. He denies chest pain or palpitations. He has no abdominal pain or diarrhea and no one else is sick. Dizziness this morning is significantly worse. He also states that he was recently started on Actos for his diabetes 3 days ago and thinks this may be contributing. 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 MD complaint: dizziness Timing: gradual onset Relieving factors: remaining still Exacerbating factors: position Related Data Home Medications Medication Instructions Recorded Confirmed ASCORBIC ACID (VITAMIN C) 500 mg PO DAILY #0 12/28/10 10/27/20 BIOTIN/CA PANTOTHENATE/FOLIC2 (B50) 1 tab PO DAILY #0 12/28/10 10/27/20 CHOLECALCIFEROL (VITAMIN D) 2,000 iu PO DAILY #0 12/28/10 10/27/20 Chromium (#CHROMIUM) 200 mcg PO TID #0 12/28/10 10/27/20 Fish Oil 3,000 mg PO DAILY #0 12/28/10 10/27/20 aspirin 81 mg tablet,delayed 81 mg PO DAILY 12/26/19 10/27/20 release metformin 1,000 mg tablet 1,000 mg PO BID 12/26/19 10/27/20 rosuvastatin 5 mg tablet 5 mg PO DAILY 12/26/19 10/27/20 levothyroxine 100 mcg tablet 100 mcg PO DAILY 03/10/20 10/27/20 Previous Rx's Medication Instructions Recorded lisinopril 5 mg tablet 5 mg PO DAILY #90 tab 07/20/20 glimepiride 4 mg tablet 4 mg PO BID #180 tab 07/23/20 pioglitazone 30 mg tablet 30 mg PO DAILY #30 tab 10/23/20 gabapentin 300 mg capsule 300 mg PO DAILY #30 cap 10/27/20 meclizine 25 mg PO TID PRN #10 tab 10/30/20 ondansetron 4 mg PO Q8H PRN #10 tab 10/30/20 Allergies Allergy/AdvReac Type Severity Reaction Status Date / Time bee venom protein (honey bee) Allergy Intermediate Verified 10/27/20 15:47 Review of Systems Review of Systems ROS Unobtainable: All systems reviewed & are unremarkable except as noted in HPI and below Constitutional Constitutional: Denies chills, Denies fever(s), Denies headache(s), Denies lethargy and Denies weakness Eyes Eyes: Denies blurry vision, Denies diplopia and Denies loss of vision ENT Ears, Nose, Mouth, and Throat: Reports dizziness and Denies headache(s) Cardiovascular Cardiovascular: Denies chest pain, Denies syncope, Denies irregular heart rhythm, Reports lightheadedness, Denies palpitations, Denies dyspnea, Denies dyspnea on exertion and Denies orthopnea Respiratory Respiratory: Denies cough, Denies dyspnea, Denies dyspnea on exertion and Denies wheezing Gastrointestinal Gastrointestinal: Denies abdominal pain, Denies change in stool character, Reports nausea and Denies vomiting Musculoskeletal Musculoskeletal: Denies back pain, Denies myalgias and Denies numbness Neurologic Neurologic: Reports dizziness, Denies syncope, Denies headache(s), Denies lack of coordination, Denies loss of vision, Denies numbness and Denies weakness Endocrine Endocrine: Denies palpitations Allergic/Immunologic Allergic/Immunologic: Denies wheezing Patient History Medical History Allergic reaction to bee sting Essential hypertension Hyperlipidemia Hypothyroidism (acquired) Scrotal edema Type 2 diabetes mellitus, uncontrolled Surgical History History of right-sided carotid endarterectomy Family History Father No significant medical problems Mother Diabetes mellitus Grandmother Diabetes mellitus Social History household members: significant other Smoking Status: Never smoker alcohol intake: current Smoking Status: Never smoker alcohol intake frequency: 0-2 drinks per day Alcohol type: wine Substance Use Type: does not use Exam Initial Vital Signs Initial Vital Signs: Vital Signs Temperature 98.7 F 10/30/20 08:20 Pulse Rate 86 10/30/20 08:20 Respiratory Rate 18 10/30/20 08:20 Blood Pressure 176/86 H 10/30/20 08:20 Pulse Oximetry 97 10/30/20 08:20 GENERAL: Alert 80-year-old male and in no acute distress. HEENT: Head atraumatic,EOMI, no nystagmus pupils reactive, face symmetric, moist mucous membranes CARDIOVASCULAR: Regular rate and rhythm without murmurs, rubs or gallops. RESPIRATORY: Breath sounds equal bilaterally, no wheezes rales or rhonchi. ABDOMEN: Soft, nontender. Normoactive bowel sounds all 4 quadrants. No guarding or rebound. EXTREMITIES: Normal range of motion, no clubbing or edema. Neurovascularly intact NEUROLOGICAL: Alert and oriented x4.Normal gait and speech. Cranial nerves II through XII grossly intact. Good zztsyu-wy-zxuc, good awac-hp-lxcs, strength equal bilaterally, no dysarthria or aphasia, sensation in tact to soft touch bilaterally, no visual changes, no facial droop SKIN: Warm, dry, no laceration, no petechiae, no rashes or lesions. Scores NIH Stroke Scale Level of Conciousness: Alert, keenly responsive Ask month/age: Answers both questions correctly. Open/close eyes, close hand: Performs both tasks correctly Best gaze horizontal: Normal Visual garcia: No visual loss Facial palsy: Normal symetrical movement Left arm drift: No drift for full 10 sec Right arm drift: No drift for full 10 sec Left leg drift: No drift for full 5 sec Right leg drift: No drift for full 5 sec Limb ataxia: Absent Sensory on face/arms/legs: Normal, no sensory loss Best language: No aphasia, normal Dysarthria: Normal Extinction or inattention: No abnormality Total NIH Stroke scale score: 0 Course Orders Ordered: ED Orders 10/30/20 10:12 CT angio head and neck Stat Discontinued Medications Sodium Chloride (Normal Saline 0.9%) 1,000 mls @ 1,000 mls/hr IV BOLUS ONE Stop: 10/30/20 09:37 Last Infusion: 10/30/20 09:34 Dose: 0 mls/hr Documented by: Admin: 10/30/20 08:51 Dose: 1,000 mls/hr Documented by: BERT Meclizine HCl (Meclizine Hcl 12.5 Mg Tablet) 50 mg PO NOW ONE Stop: 10/30/20 08:39 Last Admin: 10/30/20 08:50 Dose: 50 mg Documented by: BERT Ondansetron HCl (Ondansetron 4 Mg/2 Ml Inj) 4 mg IV NOW ONE Stop: 10/30/20 08:39 Last Admin: 10/30/20 08:51 Dose: 4 mg Documented by: BERT Vital Signs Vital signs: Vital Signs - 8 hr 10/30/20 10:20 10/30/20 10:30 10/30/20 11:07 Pulse Rate 70 66 75 Respiratory Rate 17 16 14 Blood Pressure 160/75 H Pulse Oximetry 95 99 93 10/30/20 11:08 10/30/20 11:30 Pulse Rate 71 67 Respiratory Rate 17 17 Blood Pressure 163/80 H 143/71 H Pulse Oximetry 96 97 MDM - Dizziness Lab Data Attestation: I reviewed the patient's lab results. Result diagrams: 10/30/20 08:30 10/30/20 08:30 Labs: Lab Results 10/30/20 10/30/20 10/30/20 Range/Units 08:30 08:30 08:30 WBC 6.2 (4.5-11.0) X10^3/uL RBC 4.23 L (4.5-5.9) X10^6/uL Hgb 12.6 L (13.5-17.5) g/dL Hct 38.5 L (41-53) % MCV 91.2 (80-100) fL MCH 29.9 (26-34) PG MCHC 32.7 (30-36) % RDW 15.0 H (11.6-14.8) % Plt Count 198 (150-400) X10^3/uL Neut % (Auto) 69.0 (50-75) % Lymph % (Auto) 20.4 L (25-40) % [place] % (Auto) 9.1 (3-14) % Eos % (Auto) 0.8 L (2-4) % Baso % (Auto) 0.7 (0-2) % Neut # (Auto) 4300 (6739-3277) /uL Lymph # (Auto) 1300 (7055-3084) /uL [place] # (Auto) 600 (0-900) /uL Eos # (Auto) 0 (0-450) /uL Baso # (Auto) 0 (0-100) /uL PT 12.3 (10.1-12.7) SECONDS INR 1.1 (0.9-1.3) APTT 29 (26.4-36.2) SECONDS Sodium 134 L (137-145) mmol/L Potassium 4.3 (3.4-5.1) mmol/L Chloride 98 (98-107) mmol/L Carbon Dioxide 29 (22-32) mmol/L BUN 21 H (9-20) mg/dL Creatinine 0.72 (0.66-1.25) mg/dL Estimated GFR > 60.0 (>60) mL/min BUN/Creatinine Ratio 29.2 H (6-22) Glucose 221 H (80-110) mg/dL Calcium 9.3 (8.4-10.2) mg/dL Total Bilirubin 0.5 (0.2-1.3) mg/dL AST 26 (17-59) IU/L ALT 22 (<50) IU/L Alkaline Phosphatase 46 (38-126) U/L Total Creatine Kinase 111 (55-170) U/L CK-MB (CK-2) 3.10 H (<2.37) ng/mL CK-MB (CK-2) Rel Index 2.8 (1.5-5.0) % Troponin I < 0.012 (0.01-0.034) ng/mL Total Protein 7.3 (6.3-8.2) g/dL Albumin 4.4 (3.5-5.0) g/dL Globulin 2.9 (1.7-4.1) g/dL Albumin/Globulin Ratio 1.5 (1.0-2.8) Lipase 73 (23-300) U/L Imaging Data CT scan - head: Radiologist's Impression: PROCEDURE: CT HEAD/BRAIN WO CON INDICATIONS: Vertigo TECHNIQUE: Noncontrast 4.5 mm thick angled axial sections acquired from the foramen magnum to the vertex, with coronal and sagittal reformats. For radiation dose reduction, the following was used: automated exposure control, adjustment of mA and/or kV according to patient size. COMPARISON: None. FINDINGS: Image quality: Excellent. CSF spaces: Basal cisterns are patent. No extra-axial fluid collections. Ventricles are normal in size and shape. Brain: No midline shift. No intracranial masses or hemorrhage. Sánchez-white matter interface is normal. Skull and face: Calvarium and visualized facial bones are intact, without suspicious lesions. Sinuses: Visualized sinuses and mastoids are clear. IMPRESSION: No acute intracranial finding. Global cerebral volume loss and chronic microvascular ischemic changes. Vertebral artery and carotid artery atherosclerosis. Dictated by: Prasad Mena M.D. on 10/30/2020 at 9:01 CTA - brain/neck: Radiologist's Impression: PROCEDURE: CT ANGIO HEAD AND NECK INDICATIONS: dizzy gait abnormality TECHNIQUE: Noncontrast images were performed earlier in the day and not repeated. After the administration of intravenous contrast, 1 mm thick sections acquired from the aortic arch through the [place] of [place]. Post-contrast 4.5 mm thick sections then re-acquired from the foramen magnum to the vertex. 3-dimensional tjlkanl-dzmyyesfv-yeeoqmazju (MIP) and/or volume rendering reformats were acquired of the central intracranial vasculature and neck separately. COMPARISON: [facility], [place], CAROTID ARTERY DOPPLER BILAT, 02/14/2017, 9:15. [facility], CT, CT HEAD/BRAIN WO CON, 03/17/2020, 17:44. [facility], CT, CT HEAD/BRAIN WO CON, 10/30/2020, 8:47. FINDINGS: Image quality: Excellent. BRAIN: CSF spaces: Ventricles are normal in size and shape. Basal cisterns are patent. No extra-axial fluid collections. Brain: No midline shift. No intracranial bleeds or masses. Sánchez-white matter interface appears intact. Skull and face: Calvarium and facial bones appear intact, without suspicious lesions. Orbits appear normal. Sinuses: Sinuses and mastoids are clear. HEAD CT ANGIOGRAPHY: Anterior circulation: Intracranial internal carotid arteries demonstrate atherosclerotic irregularity and calcification, with approximately 50% narrowing seen on each side. The flow within the paired anterior cerebral arteries is normal and symmetric. The flow within the middle cerebral arteries is normal and symmetric. The anterior communicating artery is seen. No aneurysms are seen. Posterior circulation: Visualized portions of the vertebral arteries demonstrate normal caliber, and join to form a normal appearing basilar artery. Flow within the posterior cerebral arteries is normal and symmetric. No aneurysms are seen. NECK CT ANGIOGRAPHY: Carotid system: The great vessels demonstrate a conventional anatomy as they arise from the aortic arch. The origins of the common carotid arteries appear patent. The common carotid arteries demonstrate normal caliber and courses. The bifurcation regions demonstrate atherosclerotic irregularity and calcification, left worse than right. Prior right carotid endarterectomy change can be seen. On the right, there is approximately 40-50% narrowing involving the right proximal internal carotid artery. On the left, there is 50-60% proximal narrowing. The more distal right internal carotid artery is unremarkable. The left internal carotid artery demonstrates prominent tortuosity. Posterior circulation: The origins of the vertebral arteries both appear widely patent. The more superior extracranial portions of both vertebral arteries also demonstrate normal courses and calibers. They join to form a normal appearing basilar artery. Soft tissues: Visualized neck soft tissues demonstrate no suspicious abnormalities. Bones: No suspicious bony lesions. Visualized cervical spine appears normally aligned. At least moderate cervical spine degenerative changes can be seen. IMPRESSION: No acute intracranial process is seen. No significant intracranial arterial abnormality is seen. There is 50-60% narrowing seen involving the left proximal internal carotid artery and 40-50% narrowing seen involving right proximal internal carotid artery. Prior right carotid endarterectomy change, with resolution of the previously seen critical stenosis. Any quantitative measurements of stenosis were performed using NASCET criteria. Dictated by: Jackson Sanderson M.D. on 10/30/2020 at 10:26 ECG Data Attestation: I personally reviewed and interpreted this ECG as follows: Prior ECG tracings: available for review Interpretation: Normal sinus rhythm rate 84 p.r. interval 190 QRS 194 QTC 489 right bundle branch block noted similar to previous EKG no ST changes or T-wave inversions MDM Narrative Medical decision making narrative: Patient is evaluated after a noncontrast head CT. He said he is feeling better but still a bit woozy. Ambulation trial did show he has a little ataxia is an abnormal gait. Decision to do CT angio of head and neck. CT angio is negative patient continues to walk around the emergency department he is feeling significantly better. I suspect this is benign paroxysmal positional vertigo rather than posterior stroke. No sign of large vessel occlusion. He is aware of his right carotid narrowing. The left carotid had an endarterectomy a few years ago. Discharge Plan Departure Patient Disposition: Home Clinical Impression: Benign paroxysmal positional vertigo Qualifiers: Laterality: unspecified laterality Qualified Code(s): H81.10 - Benign paroxysmal vertigo, unspecified ear Instructions: Benign Paroxysmal Positional Vertigo Activity Restrictions/Additional Instructions: *You have been diagnosed with benign paroxysmal positional vertigo *What to do: At this time symptoms should spontaneously resolve. *Continue to take medications as directed--> SENT TO [facility] Meclizine 25 mg every 8 hours if needed for dizziness Zofran 4 mg every 8 hours if needed for nausea or vomiting *Follow up with your primary care provider in 2-3 days *Return to ER if you should have persistent dizziness, difficulty walking, speech abnormality, weakness numbness or tingling. or any new, worsening or concerning symptoms Prescriptions: New meclizine 25 mg tablet 25 mg PO TID PRN (Reason: dizziness) Qty: 10 RF: 0 ondansetron 4 mg tablet,disintegrating 4 mg PO Q8H PRN (Reason: nausea and vomiting) Qty: 10 RF: 0 No Action BIOTIN/CA PANTOTHENATE/FOLIC2 (B50) 1 tab PO DAILY Qty: 0 RF: 0 Fish Oil 3,000 mg PO DAILY Qty: 0 RF: 0 ASCORBIC ACID (VITAMIN C) 500 mg PO DAILY Qty: 0 RF: 0 CHOLECALCIFEROL (VITAMIN D) 2,000 iu PO DAILY Qty: 0 RF: 0 Chromium (#CHROMIUM) 200 mcg PO TID Qty: 0 RF: 0 lisinopril 5 mg tablet 5 mg PO DAILY Qty: 90 RF: 3 glimepiride 4 mg tablet 4 mg PO BID Qty: 180 RF: 0 pioglitazone 30 mg tablet 30 mg PO DAILY Qty: 30 RF: 0 rosuvastatin 5 mg tablet 5 mg PO DAILY RF: 0 metformin 1,000 mg tablet 1,000 mg PO BID RF: 0 aspirin [Adult Aspirin Regimen] 81 mg tablet,delayed release (DR/EC) 81 mg PO DAILY RF: 0 levothyroxine 100 mcg tablet 100 mcg PO DAILY RF: 0 gabapentin 300 mg capsule 300 mg PO DAILY Qty: 30 RF: 0 Referrals: Alejandro Rosenbaum MD [Primary Care Provider] -
[2020-10-30 08:47] LABS: INR 1.1 (0.9-1.3); Prothrombin Time 12.3 SECONDS (10.1-12.7)
[2020-10-30 08:50] LABS: PTT Partial Thromboplastin Tim 29 SECONDS (26.4-36.2)
[2020-10-30] MEDS: MECLIZINE HCL 12.5 MG TABLET 50 MG PO (08:50)
--- NOTE | 2020-10-30 08:50 | DI.CT.S_ITS ---
PROCEDURE: CT HEAD/BRAIN WO CON INDICATIONS: Vertigo TECHNIQUE: Noncontrast 4.5 mm thick angled axial sections acquired from the foramen magnum to the vertex, with coronal and sagittal reformats. For radiation dose reduction, the following was used: automated exposure control, adjustment of mA and/or kV according to patient size. COMPARISON: None. FINDINGS: Image quality: Excellent. CSF spaces: Basal cisterns are patent. No extra-axial fluid collections. Ventricles are normal in size and shape. Brain: No midline shift. No intracranial masses or hemorrhage. Sánchez-white matter interface is normal. Skull and face: Calvarium and visualized facial bones are intact, without suspicious lesions. Sinuses: Visualized sinuses and mastoids are clear. IMPRESSION: No acute intracranial finding. Global cerebral volume loss and chronic microvascular ischemic changes. Vertebral artery and carotid artery atherosclerosis. Dictated by: Prasad Mena M.D. on 10/30/2020 at 9:01 Approved by: Prasad Mena M.D. on 10/30/2020 at 9:05
[2020-10-30 08:51] LABS: Alanine Aminotransferase 22 IU/L (<50); Albumin 4.4 g/dL (3.5-5.0); Albumin Globulin Ratio 1.5 (1.0-2.8); Alkaline Phosphatase 46 U/L (38-126); Aspartate Aminotransferase 26 IU/L (17-59); BUN Creatinine Ratio 29.2 (6-22); Bilirubin Total 0.5 mg/dL (0.2-1.3); Blood Urea Nitrogen 21 mg/dL (9-20); Calcium 9.3 mg/dL (8.4-10.2); Carbon Dioxide 29 mmol/L (22-32); Chloride 98 mmol/L (98-107); Creatine Kinase 111 U/L (55-170); Estimated Glomerular Filt Rate > 60.0 mL/min (>60); Globulin 2.9 g/dL (1.7-4.1); Glucose 221 mg/dL (80-110); Lipase 73 U/L (23-300); Potassium 4.3 mmol/L (3.4-5.1); Sodium 134 mmol/L (137-145); Total Protein 7.3 g/dL (6.3-8.2)
[2020-10-30] MEDS: ONDANSETRON 4 MG/2 ML INJ IV (08:51)
[2020-10-30] MEDS: SODIUM CHLORIDE 0.9% 1,000 ML 1000 ML IV (08:51)
[2020-10-30 09:03] LABS: Troponin I < 0.012 ng/mL (0.01-0.034)
[2020-10-30 09:06] LABS: CKMB % Relative Index 2.8 % (1.5-5.0); HEMOLYSIS 23 (0-50)
--- NOTE | 2020-10-30 10:12 | DI.CT.S_ITS ---
PROCEDURE: CT ANGIO HEAD AND NECK INDICATIONS: dizzy gait abnormality TECHNIQUE: Noncontrast images were performed earlier in the day and not repeated. After the administration of intravenous contrast, 1 mm thick sections acquired from the aortic arch through the [place] of [place]. Post-contrast 4.5 mm thick sections then re-acquired from the foramen magnum to the vertex. 3-dimensional njtivmb-ehtfsgpwr-tsddhpcdvf (MIP) and/or volume rendering reformats were acquired of the central intracranial vasculature and neck separately. COMPARISON: [facility], [place], CAROTID ARTERY DOPPLER BILAT, 02/14/2017, 9:15. [facility], CT, CT HEAD/BRAIN WO CON, 03/17/2020, 17:44. [facility], CT, CT HEAD/BRAIN WO CON, 10/30/2020, 8:47. FINDINGS: Image quality: Excellent. BRAIN: CSF spaces: Ventricles are normal in size and shape. Basal cisterns are patent. No extra-axial fluid collections. Brain: No midline shift. No intracranial bleeds or masses. Sánchez-white matter interface appears intact. Skull and face: Calvarium and facial bones appear intact, without suspicious lesions. Orbits appear normal. Sinuses: Sinuses and mastoids are clear. HEAD CT ANGIOGRAPHY: Anterior circulation: Intracranial internal carotid arteries demonstrate atherosclerotic irregularity and calcification, with approximately 50% narrowing seen on each side. The flow within the paired anterior cerebral arteries is normal and symmetric. The flow within the middle cerebral arteries is normal and symmetric. The anterior communicating artery is seen. No aneurysms are seen. Posterior circulation: Visualized portions of the vertebral arteries demonstrate normal caliber, and join to form a normal appearing basilar artery. Flow within the posterior cerebral arteries is normal and symmetric. No aneurysms are seen. NECK CT ANGIOGRAPHY: Carotid system: The great vessels demonstrate a conventional anatomy as they arise from the aortic arch. The origins of the common carotid arteries appear patent. The common carotid arteries demonstrate normal caliber and courses. The bifurcation regions demonstrate atherosclerotic irregularity and calcification, left worse than right. Prior right carotid endarterectomy change can be seen. On the right, there is approximately 40-50% narrowing involving the right proximal internal carotid artery. On the left, there is 50-60% proximal narrowing. The more distal right internal carotid artery is unremarkable. The left internal carotid artery demonstrates prominent tortuosity. Posterior circulation: The origins of the vertebral arteries both appear widely patent. The more superior extracranial portions of both vertebral arteries also demonstrate normal courses and calibers. They join to form a normal appearing basilar artery. Soft tissues: Visualized neck soft tissues demonstrate no suspicious abnormalities. Bones: No suspicious bony lesions. Visualized cervical spine appears normally aligned. At least moderate cervical spine degenerative changes can be seen. IMPRESSION: No acute intracranial process is seen. No significant intracranial arterial abnormality is seen. There is 50-60% narrowing seen involving the left proximal internal carotid artery and 40-50% narrowing seen involving right proximal internal carotid artery. Prior right carotid endarterectomy change, with resolution of the previously seen critical stenosis. Any quantitative measurements of stenosis were performed using NASCET criteria. Dictated by: Jackson Sanderson M.D. on 10/30/2020 at 10:26 Approved by: Jackson Sanderson M.D. on 10/30/2020 at 10:32
--- NOTE | 2020-10-30 10:13 | PC.NURSE ---
gait was abnormal when ambulating in the ER. pt to get a Ct angio
== END 2020-10-30 12:04 | disposition home or self-care (01) ==
PROVIDERS: Emergency Provider Emergency Medicine; PCP Student in an Organized Health Care Education/Training Program
DX: H81.10 Benign paroxysmal vertigo, unspecified ear (principal); R07.9 Chest pain, unspecified; R11.0 Nausea
CPT/HCPCS: 36415; 70450; 70496; 70498; 71045; 80053; 82550; 82553; 83690; 84484; 85025; 85610; 85730; 93005; 93010; 96361; 96374; 99284; J2405; Q9967

== ENCOUNTER 2020-11-13 09:45 | Outpatient (RCR) | payer OTHER, SELFPAY ==
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
--- NOTE | 2020-11-04 15:14 | PT.OPPOC ---
Physical, Occupational & Speech Therapy At [facility] Current Diagnoses Benign paroxysmal vertigo, unspecified ear (11/04/20) Benign paroxysmal vertigo, right ear (11/04/20) Dizziness and giddiness (11/04/20) Visit Care Team Role Provider Type Alejandro Rosenbaum MD Attending Provider Physician Family Provider Primary Care Provider Referring Provider Specialty: Internal Medicine Address: [address] [place] [address], [address], [address] Email: [email or web address] Plan Of Care PT-OP-T Assessment and Plan Start: 11/04/20 14:59 Freq: Status: Active Protocol: Document 11/04/20 09:45 DCW (Rec: 11/04/20 15:14 DCW [id number]) Physical Therapy Assessment Rehab Potential Rehabilitation Potential Excellent Evaluation Complexity Number of Personal Factors/Comorbidities 1-2 Number of Body Systems Impaired 1-2 Clinical Presentation at Evaluation Unstable Goals Two Impairment Positive right [place]-Hallpike Correction Goal (LTG) Pt to exhibit negative positional testing bilaterally One Impairment Pt experiences rotational vertigo with positional changes Engineering Project Designer Goal (LTG) Pt to perform bed mobility with no symproms of vertigo LTG Duration 12/05/20 Assessment Summary Assessment During right Felipe-Hallpike test , pt complained of vertigo and demonstrated severe up- beating, torsional nystagmus lasting approximately 20 seconds, consistent with diagnosis of right-sided posterior canal BPPV, canalithiasis-type. Pt was treated with a right-sided modified Andrew maneuver. Pt complained of symptoms in the first and third position, which is normally indicative of a successful treatment. Further positional testing was negative. Pt was educated on BPPV, expectations for treatment, possible recurrence (BPPV has a ~50% recurrence rate in the five years following treatment), and post -Andrew restrictions. Pt to return in ~1 week for a follow -up appointment, and intermittently afterward as indicated for treatment of BPPV. Physical Therapy Plan Frequency and Duration Frequency of Treatment as indicated Duration of Treatment Six weeks Plan of Care Start Date 11/04/20 Plan of Care End Date 12/16/20 Therapeutic Interventions Therapeutic Interventions Balance Training,Canalithic Repositioning,Neuromuscular Re -education,Vestibular Rehabilitation Next Visit Focus/Plan Next Note Type Treatment Note Next Visit Plan Positional testing, CRM as indicated Plan of Care Dates Plan of Care Start Date 11/04/20 Plan of Care End Date 12/16/20 Electronically Signed by: Sergio Paz, PT 11/04/20 3119 Please Sign and Return: I have reviewed this Plan of Care and certify that the skilled therapy services above are required to meet the patient?s needs. Physician Signature Date Printed Name and Credentials Clinical Instructor Signature Printed Name and Credentials
--- NOTE | 2020-11-05 17:20 | PT.OTN ---
Current Diagnoses Benign paroxysmal vertigo, unspecified ear (11/05/20) Benign paroxysmal vertigo, right ear (11/05/20) Dizziness and giddiness (11/05/20) Physical Therapy Treatment Note PT-OP-A Visit Information Start: 11/04/20 14:59 Freq: Status: Active Protocol: Document 11/05/20 16:45 DCW (Rec: 11/05/20 17:20 DCW [id number]) Out-Patient Physical Therapy Visit Information Visit Information Visit Type Treatment Note Visit Start Time 16:45 Visit Stop Time 17:15 Total Visit Minutes 30 Visit Number 2 Number of SENIOR DIRECTOR FINANCE Visits 0 Evaluation Information Evaluation Date 11/04/20 PT-OP-B Current Condition Start: 11/04/20 14:59 Freq: Status: Active Protocol: Document 11/04/20 09:45 DCW (Rec: 11/04/20 15:14 DCW [id number]) Current Condition History of Current Condition Onset Date Five days ago Current Complaints Position-dependent dizziness History of Current Condition Pt is a 80 year old male complaining of a five day history of motion-induced vertigo. Pt reports episodes last ~20 seconds. Symptoms are provoked by positional changes, mainly sitting up in bed, or rolling to his right. Pt was seen at the ER, and diagnosed with BPPV after his battery of testing, including a brain CT, all came back negative. Pt reports he has attempted some self repositioning maneuvers he found online, but that seemed like it made things worse. Pt denies recent hearing changes, tinnitus, diplopia, dysarthria, discoordination, or decreased mentation/ consciousness. Pt denies hx of HTN, hyperlipidemia, diabetes , arrhythmia, head trauma, seizure, migraines, back/neck problems, CVA, anxiety/panic disorders, depression, or excessive smoking or drinking. PT-OP-C Subjective Start: 11/04/20 14:59 Freq: Status: Active Protocol: Document 11/05/20 16:45 DCW (Rec: 11/05/20 17:20 DCW [id number]) OP-PT Subjective Patient Comments Patient Comments When I left here yesterday, things were great, but then I got up in the middle of the middle of the night, and it has just been terrible ever since. PT-OP-O Vestibular Start: 11/04/20 14:59 Freq: Status: Active Protocol: Document 11/05/20 16:45 DCW (Rec: 11/05/20 17:20 DCW [id number]) Vestibular Assessment Positional Testing [place]-Hallpike Positive Right,Upbeating,< 60 Seconds PT-OP-Q Treatments Start: 11/04/20 14:59 Freq: Status: Active Protocol: Document 11/05/20 16:45 DCW (Rec: 11/05/20 17:20 DCW [id number]) Canalithic Repositioning BPPV Treatment Andrew Affected Canal(s) Right Posterior Reps x2 PT-OP-T Assessment and Plan Start: 11/04/20 14:59 Freq: Status: Active Protocol: Document 11/05/20 16:45 DCW (Rec: 11/05/20 17:20 DCW [id number]) Physical Therapy Assessment Goals Two Impairment Positive right Felipe-Hallpike Publicity Agent Goal (LTG) Pt to exhibit negative positional testing bilaterally LTG Duration 12/05/20 One Impairment Pt experiences rotational vertigo with positional changes Publicity Agent Goal (LTG) Pt to perform bed mobility with no symptoms of vertigo LTG Duration 12/05/20 Assessment Summary Assessment Pt again displayed severe upbeating, torsional nystagmus in right [place]-Hallpike. Pt was treated with a right-sided modified Andrew maneuver. Pt complained of symptoms in the first and third position, which is normally indicative of a successful treatment. Further positional testing was negative. Physical Therapy Plan Frequency and Duration Frequency of Treatment as indicated Duration of Treatment Six weeks Plan of Care Start Date 11/04/20 Plan of Care End Date 12/16/20 Therapeutic Interventions Therapeutic Interventions Balance Training,Canalithic Repositioning,Neuromuscular Re -education,Vestibular Rehabilitation Next Visit Focus/Plan Next Note Type Treatment Note Next Visit Plan Positional testing, CRM as indicated
--- NOTE | 2020-11-13 10:23 | PT.OTN ---
Current Diagnoses Benign paroxysmal vertigo, unspecified ear (11/13/20) Benign paroxysmal vertigo, right ear (11/13/20) Dizziness and giddiness (11/13/20) Physical Therapy Treatment Note PT-OP-A Visit Information Start: 11/04/20 14:59 Freq: Status: Active Protocol: Document 11/13/20 09:47 DCW (Rec: 11/13/20 10:23 DCW [id number]) Out-Patient Physical Therapy Visit Information Visit Information Visit Type Treatment Note Visit Start Time 09:47 Visit Stop Time 10:12 Total Visit Minutes 25 Visit Number 2 Number of CLAIMS ADJUSTER CROP Visits 0 Evaluation Information Evaluation Date 11/04/20 PT-OP-B Current Condition Start: 11/04/20 14:59 Freq: Status: Active Protocol: Document 11/04/20 09:45 DCW (Rec: 11/04/20 15:14 DCW [id number]) Current Condition History of Current Condition Onset Date Five days ago Current Complaints Position-dependent dizziness History of Current Condition Pt is a 80 year old male complaining of a five day history of motion-induced vertigo. Pt reports episodes last ~20 seconds. Symptoms are provoked by positional changes, mainly sitting up in bed, or rolling to his right. Pt was seen at the ER, and diagnosed with BPPV after his battery of testing, including a brain CT, all came back negative. Pt reports he has attempted some self repositioning maneuvers he found online, but that seemed like it made things worse. Pt denies recent hearing changes, tinnitus, diplopia, dysarthria, discoordination, or decreased mentation/ consciousness. Pt denies hx of HTN, hyperlipidemia, diabetes , arrhythmia, head trauma, seizure, migraines, back/neck problems, CVA, anxiety/panic disorders, depression, or excessive smoking or drinking. PT-OP-C Subjective Start: 11/04/20 14:59 Freq: Status: Active Protocol: Document 11/13/20 09:47 DCW (Rec: 11/13/20 10:23 DCW [id number]) OP-PT Subjective Patient Comments Patient Comments I'm a whole lot better, but I 'm still not perfect. Patient Reported Progress Improving PT-OP-O Vestibular Start: 11/04/20 14:59 Freq: Status: Active Protocol: Document 11/13/20 09:47 DCW (Rec: 11/13/20 10:23 DCW [id number]) Vestibular Assessment Positional Testing [place]-Hallpike Negative Left,Negative Right Rolling Test Negative Left,Negative Right PT-OP-Q Treatments Start: 11/04/20 14:59 Freq: Status: Active Protocol: Document 11/13/20 09:47 DCW (Rec: 11/13/20 10:23 DCW [id number]) Manual Therapy Treatment Other Other Manual Treatments Positional testing Self-Care/Home Management Treatment Education Other Education Inner ear anatomy, BPPV explanation PT-OP-T Assessment and Plan Start: 11/04/20 14:59 Freq: Status: Active Protocol: Document 11/13/20 09:47 DCW (Rec: 11/13/20 10:23 DCW [id number]) Physical Therapy Assessment Goals Two Impairment Positive right Felipe-Hallpike Detention Goal (LTG) Pt to exhibit negative positional testing bilaterally LTG Duration 12/05/20 One Impairment Pt experiences rotational vertigo with positional changes Detention Goal (LTG) Pt to perform bed mobility with no symproms of vertigo LTG Duration 12/05/20 Assessment Summary Assessment Pt positional testing negative today. 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 Pt agreeable to keeping his last remaining scheduled appointment in three weeks, however will cancel if his symptoms improve or remain at their current level. Physical Therapy Plan Frequency and Duration Frequency of Treatment as indicated Duration of Treatment Six weeks Plan of Care Start Date 11/04/20 Plan of Care End Date 12/16/20 Therapeutic Interventions Therapeutic Interventions Balance Training,Canalithic Repositioning,Neuromuscular Re -education,Vestibular Rehabilitation Next Visit Focus/Plan Next Note Type Treatment Note Next Visit Plan Positional testing, CRM as indicated
--- NOTE | 2021-01-15 15:39 | PT.OPDS ---
Current Diagnoses Benign paroxysmal vertigo, unspecified ear (11/13/20) Benign paroxysmal vertigo, right ear (11/13/20) Dizziness and giddiness (11/13/20) Visit Care Team Role Provider Type Alejandro Rosenbaum MD Attending Provider Physician Family Provider Primary Care Provider Referring Provider Specialty: Internal Medicine Address: [address] [place] [address], [address], [facility] Email: [email or web address] Visit Number Visit Number 2 Discharge Summary PT-OP-B Current Condition Start: 11/04/20 14:59 Freq: Status: Active Protocol: Document 11/04/20 09:45 DCW (Rec: 11/04/20 15:14 DCW [id number]) Current Condition History of Current Condition Onset Date Five days ago Current Complaints Position-dependent dizziness History of Current Condition Pt is a 80 year old male complaining of a five day history of motion-induced vertigo. Pt reports episodes last ~20 seconds. Symptoms are provoked by positional changes, mainly sitting up in bed, or rolling to his right. Pt was seen at the ER, and diagnosed with BPPV after his battery of testing, including a brain CT, all came back negative. Pt reports he has attempted some self repositioning maneuvers he found online, but that seemed like it made things worse. Pt denies recent hearing changes, tinnitus, diplopia, dysarthria, discoordination, or decreased mentation/ consciousness. Pt denies hx of HTN, hyperlipidemia, diabetes , arrhythmia, head trauma, seizure, migraines, back/neck problems, CVA, anxiety/panic disorders, depression, or excessive smoking or drinking. PT-OP-C Subjective Start: 11/04/20 14:59 Freq: Status: Active Protocol: Document 11/13/20 09:47 DCW (Rec: 11/13/20 10:23 DCW [id number]) OP-PT Subjective Patient Comments Patient Comments I'm a whole lot better, but I 'm still not perfect. Patient Reported Progress Improving PT-OP-O Vestibular Start: 11/04/20 14:59 Freq: Status: Active Protocol: Document 11/13/20 09:47 DCW (Rec: 11/13/20 10:23 DCW [id number]) Vestibular Assessment Positional Testing [place]-Hallpike Negative Left,Negative Right Rolling Test Negative Left,Negative Right PT-OP-T Assessment and Plan Start: 11/04/20 14:59 Freq: Status: Active Protocol: Document 01/15/21 15:37 DCW (Rec: 01/15/21 15:39 DC [id number]) Physical Therapy Assessment Assessment Summary Assessment Plan was to have pt cancel his final visit if things were still going well, however pt no-showed. Pt has now not been seen in nearly two months. Pt will be discharged from skilled therapy at this time, and will require a new referral in order to return to therapy. Physical Therapy Plan Discharge Physical Therapy Discharge Reasons No Longer Attending PT Next Visit Focus/Plan Next Note Type Discharge Summary
== END 2021-01-18 08:38 | disposition home or self-care (01) ==
LOC: PHYS 09:45
PROVIDERS: Family Provider Student in an Organized Health Care Education/Training Program; PCP Student in an Organized Health Care Education/Training Program; Referring Provider Student in an Organized Health Care Education/Training Program; Visit Provider Student in an Organized Health Care Education/Training Program
DX: H81.11 Benign paroxysmal vertigo, right ear (principal)
CPT/HCPCS: 95992; 97140; 97161; 97535

== ENCOUNTER → 2021-02-11 09:09 | Outpatient (CLI) | payer OTHER, SELFPAY ==
[2021-02-11 10:04] LABS: Blood Urea Nitrogen 26 mg/dL (9-20); Estimated Glomerular Filt Rate > 60.0 mL/min (>60)
[2021-02-11 10:19] LABS: Hemoglobin A1C% w Est Avg Glu 8.1 % (4.0-6.0)
== END ==
PROVIDERS: Family Provider Student in an Organized Health Care Education/Training Program; PCP Student in an Organized Health Care Education/Training Program; Referring Provider Student in an Organized Health Care Education/Training Program; Visit Provider Student in an Organized Health Care Education/Training Program
DX: E11.65 Type 2 diabetes mellitus with hyperglycemia (principal)
CPT/HCPCS: 36415; 82565; 83036; 84520

== ENCOUNTER → 2021-05-21 07:37 | Outpatient (CLI) | payer OTHER, SELFPAY ==
[2021-05-21 08:25] LABS: Hemoglobin A1C% w Est Avg Glu 7.9 % (4.0-6.0)
[2021-05-21 09:23] LABS: BUN Creatinine Ratio 28.4 (6-22); Blood Urea Nitrogen 31 mg/dL (9-20); Cholesterol 287 mg/dL (140-199); Estimated Glomerular Filt Rate > 60.0 mL/min (>60); HDL Cholesterol 53 mg/dL (40-60); LDL Cholesterol Calculated 206 mg/dL (<100); Triglycerides 138 mg/dL (35-150)
[2021-05-21 09:29] LABS: Creatinine Urine Random 81.5 mg/dL
[2021-05-21 09:33] LABS: Microalbumi Creatinin Ratio Ur 19.6 ug/mg CR (<30); Microalbumin Urine Random 1.6 mg/dL (0-1.6)
== END ==
PROVIDERS: Family Provider Student in an Organized Health Care Education/Training Program; PCP Student in an Organized Health Care Education/Training Program; Referring Provider Student in an Organized Health Care Education/Training Program; Visit Provider Student in an Organized Health Care Education/Training Program
DX: E11.65 Type 2 diabetes mellitus with hyperglycemia (principal); E11.69 Type 2 diabetes mellitus with other specified complication; E78.5 Hyperlipidemia, unspecified
CPT/HCPCS: 36415; 80061; 82043; 82565; 82570; 83036; 84520

== ENCOUNTER → 2021-09-07 11:43 | Outpatient (CLI) | payer MEDICARE, SELFPAY ==
[2021-09-07 15:40] LABS: Appearance Urine UA CLEAR; Bilirubin Urine UA NEGATIVE (NEGATIVE); Color Urine UA YELLOW; Glucose Urine UA TRACE g/dL (Negative); Ketones Urine UA NEGATIVE (NEGATIVE); Leukocyte Esterase Urine UA NEGATIVE (NEGATIVE); Nitrite Urine UA NEGATIVE (Negative); Occult Blood Urine UA NEGATIVE (Negative); Protein Urine UA NEGATIVE (Negative); Urobilinogen Urine UA 0.2 E.U./dL (0.2)
[2021-09-07 15:47] LABS: Bacteria Urine None Seen; Culture Indicated Urine Cult Not Indicated; RBC Urine None Seen (0-5/HPF); Squamous Epithelial Cell Urine None Seen (0-5/HPF); WBC Urine None Seen (0-5/HPF)
[2021-09-07 15:51] LABS: Hemoglobin A1C% w Est Avg Glu 9.2 % (4.0-6.0)
[2021-09-07 16:01] LABS: BUN Creatinine Ratio 23.7 (6-22); Blood Urea Nitrogen 27 mg/dL (9-20); Estimated Glomerular Filt Rate > 60.0 mL/min (>60)
== END ==
PROVIDERS: Family Provider Student in an Organized Health Care Education/Training Program; PCP Student in an Organized Health Care Education/Training Program; Referring Provider Student in an Organized Health Care Education/Training Program; Visit Provider Student in an Organized Health Care Education/Training Program
DX: E11.42 Type 2 diabetes mellitus with diabetic polyneuropathy (principal); R35.0 Frequency of micturition
CPT/HCPCS: 36415; 81001; 82565; 83036; 84520

== ENCOUNTER → 2021-09-16 10:43 | Outpatient (CLI) | payer MEDICARE, SELFPAY ==
[2021-09-16 11:59] LABS: COVID19 -Nasal RAPID Negative (Negative)
== END ==
PROVIDERS: Family Provider Student in an Organized Health Care Education/Training Program; PCP Student in an Organized Health Care Education/Training Program; Referring Provider Internal Medicine; Visit Provider Internal Medicine
DX: Z20.822 Contact with and (suspected) exposure to COVID-19 (principal)
CPT/HCPCS: 87635; C9803

== ENCOUNTER → 2021-09-17 10:55 | Outpatient (CLI) | payer MEDICARE, SELFPAY ==
--- NOTE | 2021-09-22 09:59 | PM.PFT.1 ---
Pulmonary Function Test Referral & Results Date Patient Seen: 09/17/21 Requesting provider: Saleem Arriaga Results: The spirometry demonstrates an FVC of 2.47 L which is 61% of predicted. The FEV1 was measured at 2.01 L which is 70% of predicted. The FEV1/FVC ratio was 81 which is 114% of predicted. The diffusing capacity was measured at 22.32 which is 69% of predicted. No hemoglobin value was provided, so no correction for potential anemia could be made, if appropriate. Interpretation: This study demonstrates a reduced FEV1 suggestive of perhaps mild obstructive lung disease although FEV1/FVC ratio is preserved. No bronchodilator was administered There is a mild reduction in diffusing capacity suggesting element of disease at the capillary alveolar level Clinical correlation suggested
== END ==
PROVIDERS: Family Provider Student in an Organized Health Care Education/Training Program; PCP Student in an Organized Health Care Education/Training Program; Referring Provider Internal Medicine Pulmonary Disease; Visit Provider Internal Medicine Pulmonary Disease
DX: J98.4 Other disorders of lung (principal)
CPT/HCPCS: 94010; 94060; 94729

== ENCOUNTER → 2021-11-26 10:30 | Outpatient (CLI) | payer MEDICARE, SELFPAY ==
[2021-11-26 11:56] LABS: Cholesterol 156 mg/dL (140-199); HDL Cholesterol 46 mg/dL (40-60); LDL Cholesterol Calculated 84 mg/dL (<100); Triglycerides 128 mg/dL (35-150)
[2021-11-28 08:13] LABS: Fructosamine 317 umol/L (0-285)
== END ==
PROVIDERS: Family Provider Student in an Organized Health Care Education/Training Program; PCP Student in an Organized Health Care Education/Training Program; Referring Provider Student in an Organized Health Care Education/Training Program; Visit Provider Student in an Organized Health Care Education/Training Program
DX: E78.5 Hyperlipidemia, unspecified (principal); E11.69 Type 2 diabetes mellitus with other specified complication
CPT/HCPCS: 36415; 80061; 82985

== ENCOUNTER → 2022-02-15 09:09 | Outpatient (CLI) | payer MEDICARE, SELFPAY ==
[2022-02-15 10:35] LABS: BUN Creatinine Ratio 29.2 (6-22); Blood Urea Nitrogen 26 mg/dL (9-20); Calcium 9.1 mg/dL (8.4-10.2); Carbon Dioxide 29 mmol/L (22-32); Chloride 102 mmol/L (98-107); Estimated Glomerular Filt Rate > 60 mL/min (>60); Glucose 225 mg/dL (80-110); HEMOLYSIS < 15 (0-50); Potassium 4.4 mmol/L (3.4-5.1); Sodium 137 mmol/L (137-145)
[2022-02-15 10:39] LABS: Hemoglobin A1C% w Est Avg Glu 9.3 % (4.0-6.0)
== END ==
PROVIDERS: Family Provider Student in an Organized Health Care Education/Training Program; PCP Student in an Organized Health Care Education/Training Program; Referring Provider Student in an Organized Health Care Education/Training Program; Visit Provider Student in an Organized Health Care Education/Training Program
DX: E11.42 Type 2 diabetes mellitus with diabetic polyneuropathy (principal)
CPT/HCPCS: 36415; 80048; 83036

== ENCOUNTER → 2022-03-08 14:57 | Outpatient (CLI) | payer MEDICARE, SELFPAY ==
[2022-03-09 03:36] LABS: Fructosamine 325 umol/L (0-285)
== END ==
PROVIDERS: Family Provider Student in an Organized Health Care Education/Training Program; PCP Student in an Organized Health Care Education/Training Program; Referring Provider Student in an Organized Health Care Education/Training Program; Visit Provider Student in an Organized Health Care Education/Training Program
DX: E11.9 Type 2 diabetes mellitus without complications (principal)
CPT/HCPCS: 36415; 82985

== ENCOUNTER → 2022-05-19 08:48 | Outpatient (CLI) | payer MEDICARE, SELFPAY ==
[2022-05-19 09:34] LABS: Add Manual Diff / Slide Review NO; Basophils Absolute Auto 100 /uL (0-100); Basophils Percent Auto 1.3 % (0-2); Eosinophils Absolute Auto 100 /uL (0-450); Eosinophils Percent Auto 2.7 % (2-4); Hematocrit 36.5 % (41-53); Hemoglobin 11.9 g/dL (13.5-17.5); Lymphocytes Absolute Auto 1200 /uL (1100-4500); Mean Corpuscular HGB Conc 32.7 % (30-36); Mean Corpuscular Hemoglobin 29.4 PG (26-34); Mean Corpuscular Volume 89.8 fL (80-100); Monocytes Absolute Auto 500 /uL (0-900); Monocytes Percent Auto 11.2 % (3-14); Neutrophils Absolute Auto 2400 /uL (1500-7000); Neutrophils Percent Auto 55.8 % (50-75); Platelet Count 170 X10^3/uL (150-400); Red Blood Cell Count 4.06 X10^6/uL (4.5-5.9); Red Cell Distribution Width 15.3 % (11.6-14.8); White Blood Cell Count 4.2 X10^3/uL (4.5-11.0)
[2022-05-19 09:37] LABS: Hemoglobin A1C% w Est Avg Glu 8.3 % (4.0-6.0)
[2022-05-19 09:58] LABS: Creatinine Urine Random 77.2 mg/dL
[2022-05-19 10:00] LABS: Microalbumi Creatinin Ratio Ur 32.3 ug/mg CR (<30); Microalbumin Urine Random 2.5 mg/dL (0-1.6)
[2022-05-19 10:02] LABS: Alanine Aminotransferase 22 IU/L (<50); Albumin 4.1 g/dL (3.5-5.0); Albumin Globulin Ratio 1.6 (1.0-2.8); Alkaline Phosphatase 50 U/L (38-126); Aspartate Aminotransferase 20 IU/L (17-59); Bilirubin Total 0.5 mg/dL (0.2-1.3); Blood Urea Nitrogen 26 mg/dL (9-20); Calcium 8.9 mg/dL (8.4-10.2); Carbon Dioxide 28 mmol/L (22-32); Chloride 97 mmol/L (98-107); Estimated Glomerular Filt Rate > 60 mL/min (>60); Globulin 2.5 g/dL (1.7-4.1); Glucose 188 mg/dL (80-110); HEMOLYSIS < 15 (0-50); Potassium 4.3 mmol/L (3.4-5.1); Sodium 135 mmol/L (137-145); Total Protein 6.6 g/dL (6.3-8.2)
[2022-05-19 10:25] LABS: Thyroid Stimulating Hormone 2.62 uIU/mL (0.47-4.68)
[2022-05-19 14:03] LABS: Cholesterol 149 mg/dL (140-199); HDL Cholesterol 40 mg/dL (40-60); LDL Cholesterol Calculated 81 mg/dL (<100); Triglycerides 140 mg/dL (35-150)
== END ==
PROVIDERS: Family Provider Student in an Organized Health Care Education/Training Program; PCP Student in an Organized Health Care Education/Training Program; Referring Provider Family Medicine; Visit Provider Family Medicine
DX: E11.9 Type 2 diabetes mellitus without complications (principal); E03.9 Hypothyroidism, unspecified; Z51.81 Encounter for therapeutic drug level monitoring; E78.5 Hyperlipidemia, unspecified; E11.42 Type 2 diabetes mellitus with diabetic polyneuropathy
CPT/HCPCS: 36415; 80053; 80061; 82043; 82570; 83036; 84443; 85025

== ENCOUNTER → 2022-06-29 10:04 | Outpatient (CLI) | payer MEDICARE, SELFPAY ==
[2022-06-29 11:07] LABS: Add Manual Diff / Slide Review NO; Basophils Absolute Auto 100 /uL (0-100); Basophils Percent Auto 1.4 % (0-2); Eosinophils Absolute Auto 100 /uL (0-450); Eosinophils Percent Auto 2.4 % (2-4); Hematocrit 36.6 % (41-53); Hemoglobin 11.8 g/dL (13.5-17.5); Lymphocytes Absolute Auto 1000 /uL (1100-4500); Lymphocytes Percent Auto 23.5 % (25-40); Mean Corpuscular HGB Conc 32.3 % (30-36); Mean Corpuscular Hemoglobin 29.3 PG (26-34); Mean Corpuscular Volume 90.9 fL (80-100); Monocytes Absolute Auto 500 /uL (0-900); Monocytes Percent Auto 11.8 % (3-14); Neutrophils Absolute Auto 2600 /uL (1500-7000); Neutrophils Percent Auto 60.9 % (50-75); Platelet Count 181 X10^3/uL (150-400); Red Blood Cell Count 4.02 X10^6/uL (4.5-5.9); Red Cell Distribution Width 15.8 % (11.6-14.8); White Blood Cell Count 4.3 X10^3/uL (4.5-11.0)
[2022-06-29 11:31] LABS: HEMOLYSIS < 15 (0-50); Iron 80 ug/dL (49-181)
[2022-06-29 11:41] LABS: Percent Iron Saturation 21 % (20-50); Total Iron Binding Capacity 380 ug/dL (261-462); Transferrin 287 mg/dL (206-381)
== END ==
PROVIDERS: Family Provider Student in an Organized Health Care Education/Training Program; PCP Student in an Organized Health Care Education/Training Program; Referring Provider Family Medicine; Visit Provider Family Medicine
DX: D64.9 Anemia, unspecified (principal)
CPT/HCPCS: 36415; 83540; 83550; 85025

== ENCOUNTER → 2022-08-22 13:56 | Outpatient (CLI) | payer MEDICARE, SELFPAY ==
[2022-08-22 21:24] LABS: Hemoglobin A1C% w Est Avg Glu 8.5 % (4.0-6.0)
== END ==
PROVIDERS: Family Provider Student in an Organized Health Care Education/Training Program; PCP Student in an Organized Health Care Education/Training Program; Referring Provider Student in an Organized Health Care Education/Training Program; Visit Provider Student in an Organized Health Care Education/Training Program
DX: E11.9 Type 2 diabetes mellitus without complications (principal)
CPT/HCPCS: 36415; 83036

== ENCOUNTER → 2022-12-29 15:17 | Outpatient (CLI) | payer MEDICARE, SELFPAY ==
[2022-12-29 17:16] LABS: BUN Creatinine Ratio 31.5 (6-22); Blood Urea Nitrogen 29 mg/dL (9-20); Carbon Dioxide 29 mmol/L (22-32); Chloride 101 mmol/L (98-107); Estimated Glomerular Filt Rate > 60 mL/min (>60); Glucose 108 mg/dL (80-110); HEMOLYSIS < 15 (0-50); Potassium 4.4 mmol/L (3.4-5.1); Sodium 139 mmol/L (137-145)
[2022-12-29 18:37] LABS: Creatinine Urine Random 63.7 mg/dL
[2022-12-29 18:41] LABS: Microalbumi Creatinin Ratio Ur 23.5 ug/mg CR (<30); Microalbumin Urine Random 1.5 mg/dL (0-1.6)
[2022-12-30 04:30] LABS: Labcorp Hemoglobin (Hb) A1c 7.7 % (4.8-5.6)
== END ==
PROVIDERS: Family Provider Student in an Organized Health Care Education/Training Program; PCP Student in an Organized Health Care Education/Training Program; Referring Provider Student in an Organized Health Care Education/Training Program; Visit Provider Student in an Organized Health Care Education/Training Program
DX: E11.42 Type 2 diabetes mellitus with diabetic polyneuropathy (principal); I10 Essential (primary) hypertension
CPT/HCPCS: 36415; 80048; 82043; 82570; 83036

== ENCOUNTER → 2023-01-18 14:05 | Outpatient (CLI) | payer MEDICARE, SELFPAY ==
[2023-01-18 14:23] LABS: Add Manual Diff / Slide Review NO; Basophils Absolute Auto 100 /uL (0-100); Eosinophils Absolute Auto 100 /uL (0-450); Eosinophils Percent Auto 1.7 % (2-4); Hematocrit 35.6 % (41-53); Lymphocytes Absolute Auto 1400 /uL (1100-4500); Lymphocytes Percent Auto 25.9 % (25-40); Mean Corpuscular HGB Conc 33.8 % (30-36); Mean Corpuscular Hemoglobin 30.8 PG (26-34); Mean Corpuscular Volume 91.1 fL (80-100); Monocytes Absolute Auto 600 /uL (0-900); Monocytes Percent Auto 11.7 % (3-14); Neutrophils Absolute Auto 3300 /uL (1500-7000); Neutrophils Percent Auto 59.7 % (50-75); Platelet Count 160 X10^3/uL (150-400); Red Blood Cell Count 3.91 X10^6/uL (4.5-5.9); Red Cell Distribution Width 16.2 % (11.6-14.8); White Blood Cell Count 5.5 X10^3/uL (4.5-11.0)
[2023-01-18 14:45] LABS: Alanine Aminotransferase 23 IU/L (<50); Albumin 4.2 g/dL (3.5-5.0); Albumin Globulin Ratio 1.6 (1.0-2.8); Alkaline Phosphatase 40 U/L (38-126); Aspartate Aminotransferase 23 IU/L (17-59); BUN Creatinine Ratio 34.6 (6-22); Bilirubin Total 0.4 mg/dL (0.2-1.3); Blood Urea Nitrogen 28 mg/dL (9-20); Calcium 9.1 mg/dL (8.4-10.2); Carbon Dioxide 29 mmol/L (22-32); Chloride 99 mmol/L (98-107); Cholesterol 135 mg/dL (140-199); Estimated Glomerular Filt Rate > 60 mL/min (>60); Globulin 2.7 g/dL (1.7-4.1); Glucose 107 mg/dL (80-110); HDL Cholesterol 46 mg/dL (40-60); HEMOLYSIS < 15 (0-50); LDL Cholesterol Calculated 61 mg/dL (<100); Potassium 4.3 mmol/L (3.4-5.1); Sodium 136 mmol/L (137-145); Total Protein 6.9 g/dL (6.3-8.2); Triglycerides 140 mg/dL (35-150)
[2023-01-18 15:18] LABS: Thyroid Stimulating Hormone 0.554 uIU/mL (0.47-4.68)
[2023-01-18 17:07] LABS: Creatinine Urine Random 44.3 mg/dL
[2023-01-18 17:10] LABS: Microalbumi Creatinin Ratio Ur 22.5 ug/mg CR (<30)
[2023-01-19 07:07] LABS: x Labcorp Estim. Avg Glu (eAG) 180 mg/dL (.); x Labcorp Hemoglobin A1c 7.9 % (4.8-5.6)
== END ==
PROVIDERS: Family Provider Student in an Organized Health Care Education/Training Program; PCP Student in an Organized Health Care Education/Training Program; Referring Provider Family Medicine; Visit Provider Family Medicine
DX: E03.9 Hypothyroidism, unspecified (principal); E11.9 Type 2 diabetes mellitus without complications; Z51.81 Encounter for therapeutic drug level monitoring; E78.5 Hyperlipidemia, unspecified
CPT/HCPCS: 36415; 80053; 80061; 82043; 82570; 83036; 84443; 85025

== ENCOUNTER → 2023-01-27 14:30 | Outpatient (CLI) | payer MEDICARE, SELFPAY ==
[2023-01-27 17:02] LABS: Prostate Specific Antigen Scrn 1.34 ng/mL (0.1-4.0)
== END ==
PROVIDERS: Family Provider Student in an Organized Health Care Education/Training Program; PCP Pediatrics; Referring Provider Pediatrics; Visit Provider Pediatrics
DX: Z12.5 Encounter for screening for malignant neoplasm of prostate (principal)
CPT/HCPCS: 36415; G0103

== ENCOUNTER → 2023-04-05 13:57 | Outpatient (CLI) | payer MEDICARE, SELFPAY ==
[2023-04-05 14:35] LABS: Add Manual Diff / Slide Review NO; Basophils Absolute Auto 100 /uL (0-100); Basophils Percent Auto 1.2 % (0-2); Eosinophils Absolute Auto 100 /uL (0-450); Eosinophils Percent Auto 2.2 % (2-4); Hematocrit 32.9 % (41-53); Hemoglobin 11.1 g/dL (13.5-17.5); Lymphocytes Absolute Auto 1100 /uL (1100-4500); Lymphocytes Percent Auto 22.4 % (25-40); Mean Corpuscular HGB Conc 33.7 % (30-36); Mean Corpuscular Hemoglobin 31.1 PG (26-34); Mean Corpuscular Volume 92.3 fL (80-100); Monocytes Absolute Auto 700 /uL (0-900); Monocytes Percent Auto 14.3 % (3-14); Neutrophils Absolute Auto 2900 /uL (1500-7000); Neutrophils Percent Auto 59.9 % (50-75); Platelet Count 178 X10^3/uL (150-400); Red Blood Cell Count 3.57 X10^6/uL (4.5-5.9); Red Cell Distribution Width 15.1 % (11.6-14.8); White Blood Cell Count 4.8 X10^3/uL (4.5-11.0)
[2023-04-05 15:07] LABS: Alanine Aminotransferase 21 IU/L (<50); Albumin Globulin Ratio 1.5 (1.0-2.8); Alkaline Phosphatase 40 U/L (38-126); Aspartate Aminotransferase 23 IU/L (17-59); BUN Creatinine Ratio 31.3 (6-22); Bilirubin Total 0.2 mg/dL (0.2-1.3); Blood Urea Nitrogen 30 mg/dL (9-20); Carbon Dioxide 27 mmol/L (22-32); Chloride 104 mmol/L (98-107); Cholesterol 150 mg/dL (140-199); Estimated Glomerular Filt Rate > 60 mL/min (>60); Globulin 2.7 g/dL (1.7-4.1); Glucose 92 mg/dL (80-110); HDL Cholesterol 44 mg/dL (40-60); HEMOLYSIS < 15 (0-50); LDL Cholesterol Calculated 79 mg/dL (<100); Potassium 4.4 mmol/L (3.4-5.1); Sodium 137 mmol/L (137-145); Total Protein 6.7 g/dL (6.3-8.2); Triglycerides 135 mg/dL (35-150); VLDL Cholesterol Calculated 27 mg/dL (2-30)
[2023-04-05 15:08] LABS: Hemoglobin A1C% w Est Avg Glu 7.7 % (4.0-6.0)
[2023-04-05 15:37] LABS: Thyroid Stimulating Hormone 1.25 uIU/mL (0.47-4.68)
[2023-04-05 19:10] LABS: Creatinine Urine Random 80.2 mg/dL
[2023-04-05 19:17] LABS: Microalbumi Creatinin Ratio Ur 19.9 ug/mg CR (<30); Microalbumin Urine Random 1.6 mg/dL (0-1.6)
== END ==
PROVIDERS: Family Provider Student in an Organized Health Care Education/Training Program; PCP Pediatrics; Referring Provider Family Medicine; Visit Provider Family Medicine
DX: E03.9 Hypothyroidism, unspecified (principal); E11.9 Type 2 diabetes mellitus without complications; Z51.81 Encounter for therapeutic drug level monitoring; E78.5 Hyperlipidemia, unspecified
CPT/HCPCS: 36415; 80053; 80061; 82043; 82570; 83036; 84443; 85025

== ENCOUNTER → 2023-04-14 09:33 | Outpatient (CLI) | payer MEDICARE, SELFPAY ==
[2023-04-14 10:41] LABS: Add Manual Diff / Slide Review NO; Basophils Absolute Auto 100 /uL (0-100); Basophils Percent Auto 0.9 % (0-2); Eosinophils Absolute Auto 100 /uL (0-450); Eosinophils Percent Auto 2.4 % (2-4); Hematocrit 37.1 % (41-53); Hemoglobin 12.2 g/dL (13.5-17.5); Lymphocytes Absolute Auto 1300 /uL (1100-4500); Lymphocytes Percent Auto 22.8 % (25-40); Mean Corpuscular HGB Conc 32.9 % (30-36); Mean Corpuscular Hemoglobin 30.3 PG (26-34); Mean Corpuscular Volume 92.1 fL (80-100); Monocytes Absolute Auto 600 /uL (0-900); Monocytes Percent Auto 11.4 % (3-14); Neutrophils Absolute Auto 3500 /uL (1500-7000); Neutrophils Percent Auto 62.5 % (50-75); Platelet Count 182 X10^3/uL (150-400); Red Blood Cell Count 4.02 X10^6/uL (4.5-5.9); Red Cell Distribution Width 15.1 % (11.6-14.8); White Blood Cell Count 5.6 X10^3/uL (4.5-11.0)
[2023-04-14 11:13] LABS: HEMOLYSIS < 15 (0-50); Iron 94 ug/dL (49-181)
[2023-04-14 11:24] LABS: Percent Iron Saturation 26 % (20-50); Total Iron Binding Capacity 359 ug/dL (261-462); Transferrin 277 mg/dL (206-381)
[2023-04-14 12:24] LABS: Folate > 20.0 ng/mL (2.76-20.0); Vitamin B12 > 1000 pg/mL (239-931)
== END ==
PROVIDERS: Family Provider Student in an Organized Health Care Education/Training Program; PCP Pediatrics; Referring Provider Family Medicine; Visit Provider Family Medicine
DX: D64.9 Anemia, unspecified (principal)
CPT/HCPCS: 36415; 82607; 82746; 83540; 83550; 85025

== ENCOUNTER 2023-07-24 10:47 | Emergency (ER) | payer MEDICARE, SELFPAY ==
[2023-07-24 10:51] VITALS: BP 197/88; PULSE 80; RESP 14; TEMP 36.3; O2SAT 99; BMI 24.3
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
[2023-07-24 12:27] VITALS: BP 119/57; PULSE 65; RESP 18; O2SAT 96
== END 2023-07-24 12:28 | disposition home or self-care (01) ==
PROVIDERS: Emergency Provider Student in an Organized Health Care Education/Training Program; Family Provider Student in an Organized Health Care Education/Training Program; PCP Pediatrics
DX: S09.90XA Unspecified injury of head, initial encounter (principal); V19.9XXA Pedal cyclist (driver) (passenger) injured in unspecified traffic accident, initial encounter; Z79.899 Other long term (current) drug therapy
CPT/HCPCS: 70450; 72125; 99281; 99284

== ENCOUNTER → 2023-08-04 14:00 | Outpatient (CLI) | payer MEDICARE, SELFPAY ==
[2023-08-04 15:36] LABS: Add Manual Diff / Slide Review NO; Basophils Absolute Auto 100 /uL (0-100); Basophils Percent Auto 1.2 % (0-2); Eosinophils Absolute Auto 100 /uL (0-450); Eosinophils Percent Auto 2.3 % (2-4); Hematocrit 34.3 % (41-53); Hemoglobin 11.4 g/dL (13.5-17.5); Lymphocytes Absolute Auto 1300 /uL (1100-4500); Lymphocytes Percent Auto 24.9 % (25-40); Mean Corpuscular HGB Conc 33.4 % (30-36); Mean Corpuscular Hemoglobin 30.5 PG (26-34); Mean Corpuscular Volume 91.5 fL (80-100); Monocytes Absolute Auto 500 /uL (0-900); Monocytes Percent Auto 10.5 % (3-14); Neutrophils Absolute Auto 3100 /uL (1500-7000); Neutrophils Percent Auto 61.1 % (50-75); Platelet Count 174 X10^3/uL (150-400); Red Blood Cell Count 3.74 X10^6/uL (4.5-5.9); Red Cell Distribution Width 15.7 % (11.6-14.8)
== END ==
PROVIDERS: Family Provider Student in an Organized Health Care Education/Training Program; Referring Provider Nurse Practitioner; Visit Provider Nurse Practitioner
DX: D64.9 Anemia, unspecified (principal)
CPT/HCPCS: 85025

== ENCOUNTER → 2023-08-22 14:19 | Outpatient (CLI) | payer MEDICARE, SELFPAY ==
[2023-08-22 15:00] LABS: Hemoglobin A1C% w Est Avg Glu 8.6 % (4.0-6.0)
== END ==
PROVIDERS: Family Provider Student in an Organized Health Care Education/Training Program; Referring Provider Family Medicine; Visit Provider Family Medicine
DX: E11.9 Type 2 diabetes mellitus without complications (principal)
CPT/HCPCS: 36415; 83036

== ENCOUNTER → 2023-10-24 13:48 | Outpatient (CLI) | payer MEDICARE, SELFPAY ==
[2023-10-24 15:04] LABS: Hemoglobin A1C% w Est Avg Glu 8.6 % (4.0-6.0)
== END ==
PROVIDERS: Family Provider Student in an Organized Health Care Education/Training Program; Referring Provider Family Medicine; Visit Provider Family Medicine
DX: E11.9 Type 2 diabetes mellitus without complications (principal)
CPT/HCPCS: 36415; 83036

== ENCOUNTER → 2024-02-26 14:07 | Outpatient (CLI) | payer MEDICARE, SELFPAY ==
[2024-02-26 15:16] LABS: Add Manual Diff / Slide Review NO; Basophils Absolute Auto 0 /uL (0-100); Basophils Percent Auto 0.9 % (0-2); Eosinophils Absolute Auto 100 /uL (0-450); Eosinophils Percent Auto 1.4 % (2-4); Hematocrit 34.6 % (41-53); Hemoglobin 11.6 g/dL (13.5-17.5); Lymphocytes Absolute Auto 1100 /uL (1100-4500); Lymphocytes Percent Auto 18.8 % (25-40); Mean Corpuscular HGB Conc 33.4 % (30-36); Mean Corpuscular Hemoglobin 30.9 PG (26-34); Mean Corpuscular Volume 92.5 fL (80-100); Monocytes Absolute Auto 600 /uL (0-900); Monocytes Percent Auto 10.3 % (3-14); Neutrophils Absolute Auto 3900 /uL (1500-7000); Neutrophils Percent Auto 68.6 % (50-75); Platelet Count 175 X10^3/uL (150-400); Red Blood Cell Count 3.75 X10^6/uL (4.5-5.9); Red Cell Distribution Width 15.5 % (11.6-14.8); White Blood Cell Count 5.7 X10^3/uL (4.5-11.0)
[2024-02-26 15:37] LABS: Alanine Aminotransferase 22 IU/L (<50); Albumin 4.1 g/dL (3.5-5.0); Albumin Globulin Ratio 1.6 (1.0-2.8); Alkaline Phosphatase 49 U/L (38-126); Aspartate Aminotransferase 22 IU/L (17-59); BUN Creatinine Ratio 36.5 (6-22); Bilirubin Total 0.4 mg/dL (0.2-1.3); Blood Urea Nitrogen 31 mg/dL (9-20); Carbon Dioxide 24 mmol/L (22-32); Chloride 102 mmol/L (98-107); Cholesterol 157 mg/dL (140-199); Estimated Glomerular Filt Rate > 60 mL/min (>60); Globulin 2.6 g/dL (1.7-4.1); Glucose 205 mg/dL (80-110); HDL Cholesterol 52 mg/dL (40-60); HEMOLYSIS < 15 (0-50); LDL Cholesterol Calculated 81 mg/dL (<100); Potassium 4.5 mmol/L (3.4-5.1); Sodium 134 mmol/L (137-145); Total Protein 6.7 g/dL (6.3-8.2); Triglycerides 119 mg/dL (35-150)
[2024-02-26 16:10] LABS: Thyroid Stimulating Hormone 1.58 uIU/mL (0.47-4.68)
[2024-02-26 17:43] LABS: Hemoglobin A1C% w Est Avg Glu 7.9 % (4.0-6.0)
== END ==
PROVIDERS: Family Provider Student in an Organized Health Care Education/Training Program; PCP Family Medicine; Referring Provider Family Medicine; Visit Provider Family Medicine
DX: E11.9 Type 2 diabetes mellitus without complications (principal); D64.9 Anemia, unspecified; E03.9 Hypothyroidism, unspecified
CPT/HCPCS: 36415; 80053; 80061; 83036; 84443; 85025

== ENCOUNTER → 2024-05-24 14:38 | Outpatient (CLI) | payer MEDICARE, SELFPAY ==
[2024-05-24 17:30] LABS: Add Manual Diff / Slide Review NO; Basophils Absolute Auto 0 /uL (0-100); Basophils Percent Auto 0.8 % (0-2); Eosinophils Absolute Auto 100 /uL (0-450); Eosinophils Percent Auto 3.4 % (2-4); Hematocrit 34.6 % (41-53); Hemoglobin 11.4 g/dL (13.5-17.5); Lymphocytes Absolute Auto 1200 /uL (1100-4500); Lymphocytes Percent Auto 27.8 % (25-40); Mean Corpuscular HGB Conc 32.9 % (30-36); Mean Corpuscular Hemoglobin 30.2 PG (26-34); Mean Corpuscular Volume 91.8 fL (80-100); Monocytes Absolute Auto 500 /uL (0-900); Monocytes Percent Auto 12.4 % (3-14); Neutrophils Absolute Auto 2300 /uL (1500-7000); Neutrophils Percent Auto 55.6 % (50-75); Platelet Count 191 X10^3/uL (150-400); Red Blood Cell Count 3.77 X10^6/uL (4.5-5.9); Red Cell Distribution Width 16.1 % (11.6-14.8); White Blood Cell Count 4.2 X10^3/uL (4.5-11.0)
[2024-05-24 17:54] LABS: HEMOLYSIS < 15 (0-50); Iron 70 ug/dL (49-181)
[2024-05-24 18:04] LABS: Percent Iron Saturation 21 % (20-50); Total Iron Binding Capacity 327 ug/dL (261-462); Transferrin 292 mg/dL (206-381)
[2024-05-24 18:08] LABS: Alanine Aminotransferase 21 IU/L (<50); Albumin 4.2 g/dL (3.5-5.0); Albumin Globulin Ratio 1.6 (1.0-2.8); Alkaline Phosphatase 43 U/L (38-126); Aspartate Aminotransferase 30 IU/L (17-59); BUN Creatinine Ratio 26.5 (6-22); Bilirubin Total 0.4 mg/dL (0.2-1.3); Blood Urea Nitrogen 27 mg/dL (9-20); Calcium 9.4 mg/dL (8.4-10.2); Carbon Dioxide 29 mmol/L (22-32); Chloride 98 mmol/L (98-107); Estimated Glomerular Filt Rate > 60 mL/min (>60); Globulin 2.7 g/dL (1.7-4.1); Glucose 116 mg/dL (80-110); HEMOLYSIS < 15 (0-50); Potassium 4.2 mmol/L (3.4-5.1); Sodium 134 mmol/L (137-145); Total Protein 6.9 g/dL (6.3-8.2)
[2024-05-24 18:11] LABS: Free T4, Direct Thyroxine 1.04 ng/dL (0.78-2.19)
[2024-05-24 18:16] LABS: Hemoglobin A1C% w Est Avg Glu 7.6 % (4.0-6.0)
[2024-05-24 18:25] LABS: Thyroid Stimulating Hormone 2.49 uIU/mL (0.47-4.68)
[2024-05-24 18:41] LABS: Ferritin 58 ng/mL (18-464)
[2024-05-24 18:44] LABS: Vitamin B12 > 1000 pg/mL (239-931)
== END ==
PROVIDERS: Family Provider Student in an Organized Health Care Education/Training Program; PCP Family Medicine; Referring Provider Family Medicine; Visit Provider Nurse Practitioner
DX: D64.9 Anemia, unspecified (principal); E11.9 Type 2 diabetes mellitus without complications; E03.9 Hypothyroidism, unspecified; I10 Essential (primary) hypertension
CPT/HCPCS: 36415; 80053; 82607; 82728; 83036; 83540; 83550; 84439; 84443; 85025

== ENCOUNTER → 2024-07-22 06:34 | Outpatient (CLI) | payer MEDICARE, SELFPAY ==
[2024-07-22 07:54] LABS: Hemoglobin A1C% w Est Avg Glu 7.4 % (4.0-6.0)
[2024-07-22 08:06] LABS: Glucose 117 mg/dL (80-110)
== END ==
PROVIDERS: Family Provider Student in an Organized Health Care Education/Training Program; PCP Family Medicine; Referring Provider Family Medicine; Visit Provider Family Medicine
DX: E11.9 Type 2 diabetes mellitus without complications (principal)
CPT/HCPCS: 36415; 82947; 83036

== ENCOUNTER → 2024-10-03 06:57 | Outpatient (CLI) | payer MEDICARE, SELFPAY ==
[2024-10-03 08:07] LABS: Add Manual Diff / Slide Review NO; Basophils Absolute Auto 0 /uL (0-100); Basophils Percent Auto 1.1 % (0-2); Eosinophils Absolute Auto 200 /uL (0-450); Eosinophils Percent Auto 4.2 % (2-4); Hematocrit 35.6 % (41-53); Lymphocytes Absolute Auto 1600 /uL (1100-4500); Lymphocytes Percent Auto 36.9 % (25-40); Mean Corpuscular HGB Conc 33.8 % (30-36); Mean Corpuscular Volume 91.6 fL (80-100); Monocytes Absolute Auto 600 /uL (0-900); Monocytes Percent Auto 14.5 % (3-14); Neutrophils Absolute Auto 1900 /uL (1500-7000); Neutrophils Percent Auto 43.3 % (50-75); Platelet Count 171 X10^3/uL (150-400); Red Blood Cell Count 3.88 X10^6/uL (4.5-5.9); Red Cell Distribution Width 15.6 % (11.6-14.8); White Blood Cell Count 4.3 X10^3/uL (4.5-11.0)
[2024-10-03 08:13] LABS: Hemoglobin A1C% w Est Avg Glu 6.9 % (4.0-6.0)
[2024-10-03 08:28] LABS: HEMOLYSIS < 15 (0-50); Iron 78 ug/dL (49-181)
[2024-10-03 08:33] LABS: Alanine Aminotransferase 22 IU/L (<50); Albumin 4.4 g/dL (3.5-5.0); Albumin Globulin Ratio 1.7 (1.0-2.8); Alkaline Phosphatase 52 U/L (38-126); Aspartate Aminotransferase 26 IU/L (17-59); BUN Creatinine Ratio 24.7 (6-22); Bilirubin Total 0.7 mg/dL (0.2-1.3); Blood Urea Nitrogen 23 mg/dL (9-20); Calcium 9.6 mg/dL (8.4-10.2); Carbon Dioxide 30 mmol/L (22-32); Chloride 98 mmol/L (98-107); Estimated Glomerular Filt Rate > 60 mL/min (>60); Globulin 2.6 g/dL (1.7-4.1); Glucose 165 mg/dL (80-110); HEMOLYSIS < 15 (0-50); Potassium 4.7 mmol/L (3.4-5.1); Sodium 135 mmol/L (137-145)
[2024-10-03 08:39] LABS: Percent Iron Saturation 21 % (20-50); Reticulocyte Count, Percent 0.9 % (0.9-2.6); Total Iron Binding Capacity 369 ug/dL (261-462); Transferrin 297 mg/dL (206-381)
[2024-10-03 08:47] LABS: Free T4, Direct Thyroxine 1.21 ng/dL (0.78-2.19)
[2024-10-03 09:01] LABS: Thyroid Stimulating Hormone 1.74 uIU/mL (0.47-4.68)
[2024-10-03 09:07] LABS: Ferritin 37 ng/mL (18-464)
== END ==
PROVIDERS: PCP Family Medicine; Referring Provider Family Medicine; Visit Provider Family Medicine
DX: E03.9 Hypothyroidism, unspecified (principal); E11.69 Type 2 diabetes mellitus with other specified complication; E78.5 Hyperlipidemia, unspecified; I10 Essential (primary) hypertension; D64.9 Anemia, unspecified
CPT/HCPCS: 36415; 80053; 82728; 83036; 83540; 83550; 84439; 84443; 85025; 85045

== ENCOUNTER → 2025-04-04 07:20 | Outpatient (CLI) | payer MEDICARE, SELFPAY ==
[2025-04-04 08:22] LABS: Add Manual Diff / Slide Review NO; Hematocrit 37.3 % (41-53); Hemoglobin 12.5 g/dL (13.5-17.5); Lymphocytes Absolute Auto 1100 /uL (1100-4500); Mean Corpuscular HGB Conc 33.5 % (30-36); Mean Corpuscular Hemoglobin 30.0 PG (26-34); Mean Corpuscular Volume 89.4 fL (80-100); Platelet Count 202 X10^3/uL (150-400)
[2025-04-04 09:10] LABS: Microalbumi Creatinin Ratio Ur 47.0 ug/mg CR (<30)
[2025-04-04 09:17] LABS: Cholesterol 151 mg/dL (140-199); HDL Cholesterol 56 mg/dL (40-60); Triglycerides 106 mg/dL (35-150)
[2025-04-04 09:25] LABS: Hemoglobin A1C% w Est Avg Glu 7.7 % (4.0-6.0)
[2025-04-04 09:49] LABS: Thyroid Stimulating Hormone 2.85 uIU/mL (0.47-4.68)
[2025-04-04 15:29] LABS: Alanine Aminotransferase 19 IU/L (<50); Albumin 4.4 g/dL (3.5-5.0); Albumin Globulin Ratio 1.6 (1.0-2.8); Alkaline Phosphatase 56 U/L (38-126); Blood Urea Nitrogen 26 mg/dL (9-20); Calcium 9.7 mg/dL (8.4-10.2); Carbon Dioxide 28 mmol/L (22-32); Chloride 101 mmol/L (98-107); Estimated Glomerular Filt Rate > 60 mL/min (>60); Globulin 2.7 g/dL (1.7-4.1); Glucose 150 mg/dL (70-99); HEMOLYSIS < 15 (0-50); Potassium 5.0 mmol/L (3.4-5.1); Sodium 136 mmol/L (137-145); Total Protein 7.1 g/dL (6.3-8.2)
== END ==
LOC: LAB 07:23
PROVIDERS: PCP Family Medicine; Referring Provider Family Medicine; Visit Provider Family Medicine
DX: D64.9 Anemia, unspecified (principal); E03.9 Hypothyroidism, unspecified; I10 Essential (primary) hypertension; E11.69 Type 2 diabetes mellitus with other specified complication; E78.5 Hyperlipidemia, unspecified
CPT/HCPCS: 36415; 80053; 80061; 82043; 82570; 83036; 84443; 85025